=== PATIENT | female | born 1965 | race Caucasian/White ===

== ENCOUNTER → 2016-07-12 | Outpatient (CLI) | payer BC ==
--- NOTE | 2016-07-16 09:49 | MM ---
Reason for exam: screening (asymptomatic). Last mammogram was performed 3 years and 7 months ago. History: Patient is postmenopausal and has history of other cancer at age 43. Physical Findings: A clinical breast exam by your physician is recommended on an annual basis and results should be correlated with mammographic findings. MG Screening Mammo w CAD Bilateral CC and MLO view(s) were taken. Prior study comparison: December 10, 2012, bilateral screening mammogram free. November 26, 2011, bilateral screening mammogram free. November 13, 2010, CAD bilateral diagnostic mammogram. There are scattered fibroglandular densities. No significant changes when compared with prior studies. ASSESSMENT: Negative, BI-RAD 1 RECOMMENDATION: Routine screening mammogram of both breasts in 1 year.
== END | disposition home or self-care (01) ==
LOC: RADMAMWWP 16:36
PROVIDERS: ATTEND Family Medicine
DX: Z12.31 Encounter for screening mammogram for malignant neoplasm of breast (principal)

== ENCOUNTER → 2017-03-21 | Outpatient (CLI) | payer BC, OTHER ==
--- NOTE | 2017-03-21 15:04 | XR ---
EXAMINATION TYPE: XR wrist limited RT, XR hand complete RT DATE OF EXAM: 03/21/2017 CLINICAL HISTORY: pain TECHNIQUE: Frontal, lateral and oblique images of the right hand are obtained. 2 views of the right wrist are also submitted. COMPARISON: None. FINDINGS: There is no acute fracture/dislocation evident. The joint spaces appear mildly narrowed. T he overlying soft tissue appears unremarkable. IMPRESSION: There is no acute fracture or dislocation ICD 10 NO FRACTURE, INITIAL EVALUATION
== END | disposition home or self-care (01) ==
LOC: RADXRMAIN 13:37
PROVIDERS: ATTEND Internal Medicine Hematology & Oncology
DX: C49.9 Malignant neoplasm of connective and soft tissue, unspecified (principal); M15.9 Polyosteoarthritis, unspecified; Z71.3 Dietary counseling and surveillance

== ENCOUNTER → 2017-06-24 | Outpatient (CLI) | payer BC, OTHER ==
--- NOTE | 2017-06-24 18:13 | MR ---
EXAMINATION TYPE: MR shoulder RT wo con DATE OF EXAM: 06/24/2017 COMPARISON: Outside Right shoulder x-ray June 07, 2017 HISTORY: Rt shoulder pain x 6 mos, no trauma TECHNIQUE: Multiplanar, multisequence imaging of the right shoulder is performed without contrast. FINDINGS: Rotator Cuff: There is increased signal in the distal infraspinatus tendon seen best parasagittal chirag ge 22 . There is focal defect in the distal supraspinatus tendon at articular surface measured 7 mm A P diameter sagittal image 24 and 4 mm transversely paracoronal image 13. No full-thickness retracted tear is seen. Rotator cuff muscle bulk is preserved. Subscapularis tendon is intact. Acromioclavicular Joint: There is mild joint space loss and capsular hypertrophy. Distal acromion mor phology is unremarkable. Underlying fat plane is maintained. Glenohumeral Joint: There is small glenohumeral joint effusion. No significant spurring is seen. Labrum: The labrum appears grossly intact given limitation of non-arthrogram study. Biceps Tendon: The long head of biceps is in normal location within bicipital groove. Bone marrow signal: No focal abnormal marrow signal is appreciated. Other: Moderate subdeltoid/subacromial fluid collection is seen IMPRESSION: High-grade articular surface tear of distal supraspinatus tendon with adjacent fluid into the subdeltoid/subacromial bursa. Tendinosis distal infraspinatus tendon. No labral tear is seen.
== END | disposition home or self-care (01) ==
LOC: RADMRIMAIN 16:19
PROVIDERS: ATTEND Orthopaedic Surgery
DX: M75.101 Unspecified rotator cuff tear or rupture of right shoulder, not specified as traumatic (principal); M25.811 Other specified joint disorders, right shoulder

== ENCOUNTER → 2017-07-02 | Outpatient (CLI) | payer BC, OTHER ==
[2017-07-02 17:47] LABS: Basophils % (A) 0 %; Eosinophils # (A) 0.1 k/uL (0-0.7); Eosinophils % (A) 1 %; HCT 41.4 % (34.0-46.0); HGB 14.1 gm/dL (11.4-16.0); Lymphocytes # (A) 2.4 k/uL (1.0-4.8); Lymphocytes % (A) 25 %; MCH 28.8 pg (25.0-35.0); MCV 84.8 fL (80.0-100.0); Mean Platelet Volume 9.2; Monocytes # (A) 0.6 k/uL (0-1.0); Monocytes % (A) 6 %; Neutrophils # (A) 6.4 k/uL (1.3-7.7); Neutrophils % (A) 66 %; Platelet Count 189 k/uL (150-450); RBC 4.88 m/uL (3.80-5.40); RDW 13.1 % (11.5-15.5); WBC 9.6 k/uL (3.8-10.6)
[2017-07-02 18:09] LABS: Potassium 4.6 mmol/L (3.5-5.1)
== END | disposition home or self-care (01) ==
LOC: LABPAT 16:56
PROVIDERS: ATTEND Orthopaedic Surgery
DX: Z01.818 Encounter for other preprocedural examination (principal); Z01.812 Encounter for preprocedural laboratory examination; M75.41 Impingement syndrome of right shoulder
CPT/HCPCS: 36415; 80051; 85025; 93005

== ENCOUNTER 2017-07-17 07:35 | Day surgery (SDC) | payer BC, OTHER ==
[2017-07-11 17:57] VITALS: BMI 27.6
--- NOTE | 2017-07-16 14:09 | HP ---
HISTORY AND PHYSICAL DATE OF SERVICE: 07/17/2017 Mariana Wyatt is a 52-year-old patient seen with progressive right shoulder pain. We discussed treatment options. She elected to proceed with right shoulder arthroscopy. Consent was obtained regarding the procedure. PAST MEDICAL HISTORY: Tfp-krfvvam-chuxnnnog diabetes. PAST SURGICAL HISTORY: Hand surgery, hysterectomy. DAILY MEDICATIONS: Ibuprofen as needed. ALLERGIES: LEVAQUIN, MORPHINE, SULFATE and NARCOTICS. SOCIAL HISTORY: Patient denies tobacco use. PHYSICAL EVALUATION RIGHT SHOULDER: Flexion 40 degrees, abduction 30 degrees, external rotation is 30 degrees with some pain and weakness. There is tenderness along the anterolateral acromion and rotator cuff insertion site. Impingement sign positive at 50 degrees. Drop-arm sign positive. Distal neurovascular exam intact. RIGHT SHOULDER RADIOGRAPHS: Revealed a type 2 anterior acromion. An MRI of the right shoulder revealed a rotator cuff tendon tear. IMPRESSION: Right shoulder impingement with rotator cuff tear. PLAN: Right shoulder arthroscopy, subacromial decompression, probable arthroscopic rotator cuff repair and debridement. MMODL / IJN: [id number] /
[~2017-07-17 07:35] MED LIST: LACTATED RINGERS 1,000 ML IV SCH; LIDOCAINE 1% 20 ML VIAL (10MG/ML) FOR IV START INTRADERMA PRN; MIDAZOLAM 2 MG/2 ML VIAL IV PRN; ONDANSETRON 4 MG/2 ML VIAL IVP ONE; SCOPOLAMINE 1.5MG/72HR PATCH TRANSDERM ONE; ceFAZolin 1,000 MG in DEXTROSE/WATER 1 50ML.BAG IVPB ONE; fentaNYL (PF) 50 MCG/ML 2 ML AMP IV PRN; fentaNYL (PF) 50 MCG/ML 2 ML AMP IVP PRN
[2017-07-17 08:44] LABS: Glucose,Whole Blood 180 mg/dL (75-99)
[2017-07-17] MEDS ORDERED: ROPIVACAINE 5 MG/ML 30 ML VIAL ONE (10:10)
[2017-07-17] MEDS ORDERED: MIDAZOLAM 2 MG/2 ML VIAL ONE (10:10)
[2017-07-17] MEDS ORDERED: LIDOCAINE 2% INJ 20 MG/ML (20 ML MDV) ONE (10:10)
[2017-07-17] MEDS ORDERED: fentaNYL (PF) 50 MCG/ML 2 ML AMP ONE (10:10)
[2017-07-17] MEDS ORDERED: PROPOFOL 10 MG/ML 20 ML VIAL IV ONE (10:10)
[2017-07-17] MEDS ORDERED: LIDOCAINE 1% INJ 10MG/ML (20 ML MDV) ONE (10:10)
[2017-07-17] MEDS ORDERED: SUCCINYLCHOLINE CHLORIDE 100 MG/5 ML SYR IV ONE (10:10)
--- NOTE | 2017-07-17 11:05 | P.ONQ ---
Anesthesiology Proc Note - PNB - Peripheral Nerve Block Performed Right Interscalene Indication: Requested by physician (Dr Wang) Sedation Type: Sedate with meaningful contact maintained Preparation: Sterile Prep Position: Supine Catheter: None Needle Types: Other (see comment) (Nanda) Needle Size: 50mm (2") Needle Gauge: 21 (0.5% Ropivacaine 13cc, 2% Lidocaine with 1:100,000 epi 13cc) Blood Aspirated: No Pain Paresthesia on Injection Noted: No Resistance on Injection: Normal Events: Uneventful and Well Tolerated
[2017-07-17] MEDS ORDERED: LACTATED RINGERS 1,000 ML IV ONE (11:11)
--- NOTE | 2017-07-17 11:58 | P.OP ---
Date of Procedure: 07/17/17 Preoperative Diagnosis: Right shoulder impingement with rotator cuff tear Postoperative Diagnosis: 1. Right shoulder rotator cuff tear 2. Right shoulder impingement 3. Right shoulder acromioclavicular joint osteoarthritis 4. Right shoulder partial biceps tendon tear 5. Right shoulder anterior labral tear Procedure(s) Performed: 1. Right shoulder arthroscopic rotator cuff repair 2. Right shoulder arthroscopic subacromial decompression 3. Right shoulder arthroscopic Siria procedure 4. Right shoulder arthroscopic biceps tenotomy 5. Right shoulder arthroscopic debridement labral tear Implants: 4-4.75 Arthrex anchors Anesthesia: GETA, regional (Interscalene block) Surgeon: Sagar Wang Balance Staff Inspector #1: Buzz Fink Estimated Blood Loss (ml): 12 Pathology: none sent Condition: stable Disposition: PACU Indications for Procedure: 52-year-old patient seen with progressive right shoulder pain. After having treatment options discussed, she elected to proceed with arthroscopy. Operative Findings: see description of procedure Description of Procedure: Patient underwent a shoulder block by department of anesthesia. The patient was then taken to the operative suite. The patient underwent a general anesthetic by the department of anesthesia. The patient was placed into a lateral position and secured. There was appropriate padding of the bony prominence. Right shoulder was then prepped and draped in normal sterile orthopedic fashion. We placed the extremity in 10 pounds of longitudinal traction. A posterior incision was now made for a posterior working portal site. The trocar and cannula were inserted into the glenohumeral joint. Arthroscopy was initiated. Spinal needle was now inserted anteriorly, to ascertain the anterior working portal site. An incision was now made in that area, a trocar was inserted followed by a probe. There was superficial tearing of the anterior labrum. There was some partial tearing and hyperemia of the long head biceps tendon. It was an obvious rotator cuff tear visualized from glenohumeral side. There was a small central area of the glenoid with grade 1 chondromalacia but no osteochondral tears present. I performed an arthroscopic biceps tenotomy. I debrided that labral tear down to stable tissue. The residual labrum was stable. Instruments were now removed from the glenohumeral joint. Utilizing the posterior working portal site, the trocar and cannula were inserted into the subacromial space. Arthroscopy initiated. I made an incision 2 fingerbreadths lateral to the acromion. I introduced my trocar followed by my ArthroCare ablator. I now began ablating thick subacromial bursal tissue, which exposed the undersurface of the anterior acromion. This was diminished subacromial space. There was a very prominent anterior acromion. A motorized bur was introduced and a subacromial decompression was performed. I also excised some osteophytes off the inferior aspect of the distal clavicle. The AC joint was visualized and noted to be fairly arthritic. Our motorized bur was introduced in the anterior portal site and a Siria procedure was performed without difficulty, decompressing the AC joint nicely. I turned my attention to the rotator cuff. There was a 2 cm tear along the distal supraspinatus. I debrided the margins getting down to stable rotator cuff tendon tissue. I abraded the footprint with a motorized bur. I created an industrial paramedic he portal site off the lateral acromion. I introduced 2 medial row anchors with 2 sutures each. I now passed all 8 limbs of suture through good bites of rotator cuff tendon. I now crisscrossed the sutures and introduced 2 lateral anchors which compressed the tendon along the footprint very nicely. The suture limbs were clipped. The repair was probed and found to be stable. I injected 1 mL of Renue intra-articular. Instruments now removed from the portal sites. All portal sites were approximated with nylon suture. Sterile dressings were applied followed by a shoulder immobilizer. Benigno ZELAYA assisted with the procedure. The patient was awakened, transferred to a bed, and taken to recovery in stable condition.
[2017-07-17 12:03] VITALS: TEMP 97.2
[2017-07-17 13:06] VITALS: RESP 18
[2017-07-17 13:34] VITALS: BP 117/74; PULSE 73
== END 2017-07-17 14:01 | disposition home or self-care (01) ==
LOC: OR 07:35
PROVIDERS: ATTEND Orthopaedic Surgery
DX: M75.101 Unspecified rotator cuff tear or rupture of right shoulder, not specified as traumatic (principal); M25.811 Other specified joint disorders, right shoulder; M19.011 Primary osteoarthritis, right shoulder; S46.111A Strain of muscle, fascia and tendon of long head of biceps, right arm, initial encounter; S43.431A Superior glenoid labrum lesion of right shoulder, initial encounter; M25.711 Osteophyte, right shoulder; X58.XXXA Exposure to other specified factors, initial encounter; E11.9 Type 2 diabetes mellitus without complications; K21.9 Gastro-esophageal reflux disease without esophagitis; Z88.5 Allergy status to narcotic agent; Z88.2 Allergy status to sulfonamides; Z88.1 Allergy status to other antibiotic agents; Z88.8 Allergy status to other drugs, medicaments and biological substances
CPT/HCPCS: 64415; 29826; 29827; 29824; C1713; C1765; J2001 ×2; J2250; J2405; J3010; J0690; J2795; J0330; J2704

== ENCOUNTER → 2017-11-16 | Outpatient (CLI) | payer BC, OTHER ==
[2017-11-16 11:00] LABS: Albumin 4.1 g/dL (3.5-5.0); Glucose 182 mg/dL (74-99); Total Protein 6.9 g/dL (6.3-8.2); Triglycerides 211 mg/dL (<150)
[2017-11-16 11:01] LABS: ALT 32 U/L (9-52); AST 23 U/L (14-36); Alkaline Phosphatase 80 U/L (38-126); Anion Gap 9 mmol/L; Blood Urea Nitrogen 18 mg/dL (7-17); Calcium 9.3 mg/dL (8.4-10.2); Carbon Dioxide 24 mmol/L (22-30); Chloride 104 mmol/L (98-107); Cholesterol 266 mg/dL (<200); HDL Cholesterol 47 mg/dL (40-60); LDL Cholesterol,Calculated 177 mg/dL (0-99); Potassium 4.9 mmol/L (3.5-5.1); Sodium 137 mmol/L (137-145)
[2017-11-16 18:08] LABS: Hemoglobin A1C 8.1 % (4.0-6.0)
== END | disposition home or self-care (01) ==
LOC: LABWHC1 10:10
PROVIDERS: ATTEND Nurse Practitioner Family
DX: E11.9 Type 2 diabetes mellitus without complications (principal)
CPT/HCPCS: 36415; 80053; 80061; 83036

== ENCOUNTER 2018-01-13 07:39 | Day surgery (SDC) | payer BC, OTHER ==
[2018-01-08 16:34] VITALS: BMI 29.2
--- NOTE | 2018-01-12 17:08 | HP ---
HISTORY AND PHYSICAL SURGERY: 01/13/2018 Mariana Hughes is a 60-year-old patient seen with right shoulder adhesions/adhesive capsulitis after having previously undergone arthroscopy. We discussed treatment options. She elected to proceed with manipulation under anesthesia with steroid injection. Consent was obtained her. PAST MEDICAL HISTORY: Noncontributory. PAST SURGICAL HISTORY: Right shoulder arthroscopy, hysterectomy. DAILY MEDICATIONS: None. ALLERGIES: Levaquin, morphine. SOCIAL HISTORY: Patient denies tobacco use. PHYSICAL EXAMINATION: Evaluation of the right shoulder: Flexion is 130 degrees, abduction is 120 degrees, external rotation is 30 degrees with good strength. Previous arthroscopic portal sites are well healed. Distal neurovascular exam is intact. RADIOGRAPHS: Radiographs of the right shoulder demonstrated a flat anterior acromion. IMPRESSION: 1. Right shoulder adhesive capsulitis. 2. History of previous right shoulder arthroscopy. PLAN: Manipulation under anesthesia right shoulder with steroid injection. MMODL / IJN: [id number] /
[~2018-01-13 07:39] MED LIST changes: +DEXAMETHASONE SOD PHOSPHATE 10 MG/ML 1 ML VIAL IV ONE; -LIDOCAINE 1% 20 ML VIAL (10MG/ML) FOR IV START INTRADERMA PRN; -ceFAZolin 1,000 MG in DEXTROSE/WATER 1 50ML.BAG IVPB ONE; +ceFAZolin IN SWFI 2 GM/20 ML SYRINGE IVP ONE; -fentaNYL (PF) 50 MCG/ML 2 ML AMP IVP PRN
[2018-01-13] MEDS ORDERED: LIDOCAINE 1% 20 ML VIAL (10MG/ML) FOR IV START INTRADERMA ONE (08:16)
[2018-01-13 08:23] LABS: Glucose,Whole Blood 202 mg/dL (75-99)
[2018-01-13] MEDS ORDERED: PROPOFOL 10 MG/ML 20 ML VIAL IV ONE (09:27)
[2018-01-13] MEDS ORDERED: LIDOCAINE 1% INJ 10MG/ML (20 ML MDV) ONE (09:27)
[2018-01-13] MEDS ORDERED: KETOROLAC 30 MG/ML 1 ML VIAL IVP ONE (09:38)
[2018-01-13 09:45] VITALS: RESP 16
[2018-01-13] MEDS ORDERED: BUPIVACAINE (PF) 0.25% 30 ML VIAL MISCELLANE ONE (09:55)
[2018-01-13] MEDS ORDERED: methylPREDNISolone ACETATE 80 MG/ML 1 ML VIAL MISCELLANE ONE (09:56)
--- NOTE | 2018-01-13 10:02 | P.OP ---
Date of Procedure: 01/13/18 Preoperative Diagnosis: Right shoulder adhesive capsulitis Postoperative Diagnosis: Same Procedure(s) Performed: Manipulation under anesthesia right shoulder with steroid injection Anesthesia: MAC Surgeon: Sagar Wang Estimated Blood Loss (ml): 0 Pathology: none sent Condition: stable Disposition: PACU Indications for Procedure: 52-year-old patient seen with persistent right shoulder stiffness/adhesive capsulitis. I discussed manipulation under anesthesia with steroid injection, patient was agreeable and consent was obtained. Operative Findings: See description of procedure Description of Procedure: Patient underwent IV sedation by the department of anesthesia monitored area. Once sufficient anesthesia was noted I performed a manipulation of the right shoulder achieving 170 of flexion, 170 of abduction, 75 of external rotation and internal rotation to the iliac crest. There was some audible tearing of the adhesions. With good range of motion noted. The anterior aspect of the shoulder was now prepped and draped in the normal sterile fashion. I injected 1 mL Depo-Medrol and 2 mL quarter percent plain Marcaine intra-articular. A sterile Band-Aid was applied. Patient tolerated procedure well.
[2018-01-13 10:21] VITALS: TEMP 96.2
[2018-01-13 11:10] VITALS: BP 114/73; PULSE 78
== END 2018-01-13 11:31 | disposition home or self-care (01) ==
LOC: OR 07:39
PROVIDERS: ATTEND Orthopaedic Surgery
DX: M75.01 Adhesive capsulitis of right shoulder (principal); E11.9 Type 2 diabetes mellitus without complications; I10 Essential (primary) hypertension; E78.5 Hyperlipidemia, unspecified; Z88.5 Allergy status to narcotic agent; Z90.710 Acquired absence of both cervix and uterus; Z88.3 Allergy status to other anti-infective agents; Z79.84 Long term (current) use of oral hypoglycemic drugs
CPT/HCPCS: 23700; 20610; J1040; J2405; J2001; J1885; J2704

== ENCOUNTER → 2018-04-10 | Outpatient (CLI) | payer OTHER ==
--- NOTE | 2018-04-10 15:35 | XR ---
AP pelvis HISTORY: Trauma and pain Single frontal view of the pelvis Correlation to left hip same date Bone mineralization, joint spaces and alignment are maintained. Calcifications are indeterminate infe rior to the ischial tuberosity on the left. There may be calcific tendinitis. Probable vascular calci fications within the pelvis. IMPRESSION: No fracture or dislocation, follow-up as indicated.
--- NOTE | 2018-04-10 15:36 | XR ---
Left hip HISTORY: Trauma and pain 2 views of the left hip Calcification is present near the insertion of the gluteus tendon on the greater trochanter of the pr oximal left femur. Alignment, bone mineralization, joint spaces are maintained. Calcifications are ag ain noted as reported and pelvis x-ray same date. IMPRESSION: No acute fracture or dislocation. Possible calcific tendinitis.
--- NOTE | 2018-04-10 15:38 | XR ---
Left femur HISTORY: Trauma and pain 2 views of the left femur on 4 images Calcifications are again noted at the level of the fascial tuberosity and greater trochanter. Alignme nt, joint spaces are maintained. Surgical clips present in the soft tissues at the posterior aspect o f the distal left femur. There is a somewhat permeative pattern in the distal femur. Osteoarthritic c hange noted in the left knee. IMPRESSION: No fracture or dislocation. Permeative pattern within the distal femur is indeterminate, consider metastasis, multiple myeloma, correlate for patient's history of surgery.
== END | disposition home or self-care (01) ==
LOC: RADXRMAIN 14:43
PROVIDERS: ATTEND Emergency Medicine
DX: S70.02XA Contusion of left hip, initial encounter (principal)
CPT/HCPCS: 72170; 73502

== ENCOUNTER 2018-09-05 08:06 | Day surgery (SDC) | payer BC, OTHER ==
[2018-09-03 10:18] VITALS: BMI 29.1
[~2018-09-05 08:06] MED LIST changes: -DEXAMETHASONE SOD PHOSPHATE 10 MG/ML 1 ML VIAL IV ONE; -MIDAZOLAM 2 MG/2 ML VIAL IV PRN; -ONDANSETRON 4 MG/2 ML VIAL IVP ONE; -SCOPOLAMINE 1.5MG/72HR PATCH TRANSDERM ONE; -ceFAZolin IN SWFI 2 GM/20 ML SYRINGE IVP ONE; -fentaNYL (PF) 50 MCG/ML 2 ML AMP IV PRN
[2018-09-05 08:33] VITALS: RESP 16; TEMP 97.9
[2018-09-05 08:38] LABS: Glucose,Whole Blood 160 mg/dL (75-99)
[2018-09-05] MEDS ORDERED: PROPOFOL 10 MG/ML 20 ML VIAL IV ONE (09:17)
--- NOTE | 2018-09-05 09:22 | P.GSHP ---
History of Present Illness H&P Date: 09/05/18 Chief Complaint: GERD, Cook, screening Patient here today for upper and lower endoscopy. Patient with history of EGD 3 years ago. Had biopsy showing Cook's esophagus at that time. Her reflux has improved significantly. No trouble swallowing. No previous colonoscopy. No family history of colon cancer. No bowel complaints. 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, RT SHOULDER SX, Past Anesthesia/Blood Transfusion Reactions: Motion Sickness, Postoperative Nausea & Vomiting (PONV) Additional Past Anesthesia/Blood Transfusion Reaction / Comment(s): PONV with morphine Smoking Status: Never smoker - Past Family History Mother Family Medical History: Diabetes Mellitus, Hyperlipidemia Additional Family Medical History / Comment(s): osteoporosis in spine Father Family Medical History: Cancer Additional Family Medical History / Comment(s): 2009 cancer of esophagus, larynx & thyroid Medications and Allergies Home Medications Medication Instructions Recorded Confirmed Type Atorvastatin [Lipitor] 20 mg PO DAILY 09/03/18 09/05/18 History Dapagliflozin Propanediol [Farxiga] 5 mg PO DAILY 09/03/18 09/05/18 History Omeprazole 20 mg PO DAILY 09/03/18 09/05/18 History Allergies Allergy/AdvReac Type Severity Reaction Status Date / Time codeine Allergy Nausea & Verified 09/05/18 08:21 Vomiting levofloxacin [From Levaquin] Allergy Swelling Verified 09/05/18 08:21 hydromorphone HCl AdvReac Nausea Verified 09/05/18 08:21 [From Dilaudid] morphine AdvReac Nausea & Verified 09/05/18 08:21 Vomiting STEROIDS AdvReac VERY HIGH Uncoded 09/05/18 08:21 BLOOD SUGARS Surgical - Exam Vital Signs Temp Pulse Resp BP Pulse Ox 97.9 F 67 16 114/76 98 09/05/18 08:26 09/05/18 08:26 09/05/18 08:26 09/05/18 08:26 09/05/18 08:26 Physical exam: General: Well-developed, well-nourished HEENT: Normocephalic, sclerae nonicteric Abdomen: Nontender, nondistended Extremities: No edema Neuro: Alert and oriented Results - Labs Abnormal Lab Results - Last 24 Hours (Table) 09/05/18 Range/Units 08:31 POC Glucose (mg/dL) 160 H (75-99) mg/dL Assessment and Plan (1) Colon cancer screening Narrative/Plan: Will proceed with upper and lower endoscopy Current Visit: Yes Status: Acute Code(s): Z12.11 - ENCOUNTER FOR SCREENING FOR MALIGNANT NEOPLASM OF COLON SNOMED Code(s): 683574659
--- NOTE | 2018-09-05 09:41 | P.PCN ---
Date of Procedure: 09/05/18 Procedure(s) Performed: PREOPERATIVE DIAGNOSIS: GERD, history of Cook's esophagus, screening POSTOPERATIVE DIAGNOSIS: Minimal gastritis, small hiatal hernia PROCEDURE: 1. EGD with biopsy 2. Colonoscopy ANESTHESIA: MAC SURGEON: Yinka King M.D. SPECIMENS: Antrum ENDOSCOPIC PROCEDURE: The patient was on the endoscopy table in the left decubitus position. The Olympus gastroscope was inserted into the oropharynx and passed under direct visualization to the region of the third portion of the duodenum. From that point the scope was slowly withdrawn inspecting all surfaces carefully. There were no neoplastic inflammatory or polypoid lesions throughout the duodenum. The pylorus was widely patent. The stomach was carefully inspected. There was more gastritis present. A biopsy of the antrum took place to rule out H. pylori. Retroflexion revealed a small sliding hiatal hernia. The esophagus was then carefully examined. There was no evidence of Cook's esophagus at this time. The remainder the esophagus appear normal. The patient was kept on the endoscopy table in the left decubitus position. The Olympus colonoscope was inserted into the anus and passed under direct visualization to the base of the cecum. The appendiceal orifice was visualized. From that point the scope was slowly withdrawn inspecting all surfaces carefully. There were no neoplastic inflammatory or polypoid lesions throughout the cecum, ascending, transverse, descending, sigmoid and rectum. There was no visible diverticulosis noted. Digital rectal examination was normal. The patient was taken to the recovery room in stable condition per anesthesia guidelines. RECOMMENDATIONS: Await biopsy results. As needed antiacid therapy. No evidence of Cook's esophagus at this time. No routine follow-up EGD advised. Follow- up colonoscopy 10 years
[2018-09-05 10:17] VITALS: BP 103/69; PULSE 69
== END 2018-09-05 10:44 | disposition home or self-care (01) ==
LOC: ORWHC2ENDO 08:06
PROVIDERS: ATTEND Surgery
DX: Z12.11 Encounter for screening for malignant neoplasm of colon (principal); K29.50 Unspecified chronic gastritis without bleeding; K21.9 Gastro-esophageal reflux disease without esophagitis; E11.9 Type 2 diabetes mellitus without complications; E78.5 Hyperlipidemia, unspecified; K44.9 Diaphragmatic hernia without obstruction or gangrene; Z80.8 Family history of malignant neoplasm of other organs or systems; Z80.0 Family history of malignant neoplasm of digestive organs; Z85.831 Personal history of malignant neoplasm of soft tissue; Z88.1 Allergy status to other antibiotic agents; Z88.5 Allergy status to narcotic agent; Z88.8 Allergy status to other drugs, medicaments and biological substances; Z79.84 Long term (current) use of oral hypoglycemic drugs; Z79.899 Other long term (current) drug therapy
CPT/HCPCS: 88305; 43239; J2704; G0121

== ENCOUNTER → 2023-03-04 | Outpatient (CLI) | payer BC ==
[2023-03-04 16:56] LABS: Ionized Calcium 5.2 mg/dL (4.5-5.3)
[2023-03-05 02:33] LABS: ALT 28 U/L (8-44); AST 19 U/L (13-35); Albumin 4.3 g/dL (3.8-4.9); Albumin/Globulin Ratio 1.87 Ratio (1.60-3.17); Alkaline Phosphatase 92 U/L (41-126); Amylase 55 U/L (23-121); Blood Urea Nitrogen 11.9 mg/dL (9.0-27.0); Carbon Dioxide 25.2 mmol/L (21.6-31.8); Chloride 102 mmol/L (96-109); Globulin 2.3 g/dL (1.6-3.3); Glucose 158 mg/dL (70-110); Lipase 48 U/L (14-63); Potassium 3.9 mmol/L (3.5-5.5); Sodium 139 mmol/L (135-145); Total Bilirubin 0.4 mg/dL (0.3-1.2); Total Protein 6.6 g/dL (6.2-8.2)
[2023-03-05 02:50] LABS: Basophils # (A) 0.05 X 10*3/uL (0.00-0.10); Basophils % (A) 0.6 %; Eosinophils # (A) 0.15 X 10*3/uL (0.04-0.35); Eosinophils % (A) 1.8 %; HGB 13.7 g/dL (12.0-15.0); Lymphocytes # (A) 1.98 X 10*3/uL (0.90-5.00); Lymphocytes % (A) 24.3 %; MCH 28.8 pg (27.0-32.0); MCHC 33.4 g/dL (32.0-37.0); MCV 86.1 FL (80.0-97.0); Mean Platelet Volume 12.3 FL (9.5-12.2); Monocytes # (A) 0.63 X 10*3/uL (0.20-1.00); Monocytes % (A) 7.7 %; NRBC Per 100 WBC 0 X 10*3/uL (0.00-0.01); Neutrophils # (A) 5.33 X 10*3/uL (1.80-7.70); Neutrophils % (A) 65.4 %; Platelet Count 209 X 10*3/uL (140-440); RBC 4.76 X 10*6/uL (4.10-5.20); RDW 12.8 % (11.5-14.5); WBC 8.16 X 10*3/uL (4.50-10.00)
== END | disposition home or self-care (01) ==
LOC: LABWHC1 14:42
PROVIDERS: ATTEND Internal Medicine
DX: E11.9 Type 2 diabetes mellitus without complications (principal)
CPT/HCPCS: 36415; 80053; 82150; 82330; 83690; 85025

== ENCOUNTER → 2023-03-12 | Outpatient (CLI) | payer BC ==
[2023-03-12 16:02] LABS: African American GFR (CKD) >90 (>60 ml/min/1.73 sqM); Blood Urea Nitrogen 23 mg/dL (7-17); Non-African American GFR(CKD) >90 (>60 ml/min/1.73 sqM)
--- NOTE | 2023-03-12 17:54 | CT ---
EXAMINATION TYPE: CT abdomen pelvis w con DATE OF EXAM: 03/12/2023 COMPARISON: NONE HISTORY: 57-year-old female R10.812, LUQ abdominal pain x 1 month TECHNIQUE: Contiguous axial scanning of the abdomen and pelvis following administration of 100 ml Iso geneva 300 IV contrast. Delayed images through the kidneys and coronal/sagittal reconstructions perform ed. CT DLP: 460.5 mGycm Automated exposure control for dose reduction was used. FINDINGS: Heart normal size without pericardial effusion. Lung bases clear without pleural effusion. Small hiatal hernia. Liver borderline in size at 17.2 cm. Mildly diminished attenuation of the liver parenchyma may reflec t mild fatty infiltration. Slight prominence to the bile duct up to 6 mm, likely chronic postcholecys tectomy status. Small 1.4 cm diverticulum arising from the second portion of the duodenum projecting into the pancreatic head region. Additional small 2.3 cm diverticulum projecting superiorly from the third portion of the duodenum. Portal venous system is patent. Adrenal glands, kidneys, spleen with small hilar splenule, and pancreas within normal limits. No dilated small bowel, free fluid, or free air. A prominent 9 mm left mid abdominal mesenteric lymph node likely reactive. Coronal image 31. Otherwise, no mesenteric or retroperitoneal lymphadenopathy. Retroaortic left renal vein. Normal appendix. [id number]-[id number] stool burden. All cervical vertebral wall thickening at the junctio n of the descending and proximal sigmoid colon. This may relate to nondistention. No pericolonic infl ammatory change. Mild distal sigmoid diverticulosis. Bladder not distended. Pelvic phlebolith. Uterus surgically absent. Both ovaries are visualized. No a bnormal fluid collection in the pelvis or pelvic lymphadenopathy. [id number] degenerative disc disease L5-S1. Some facet arthropathy lower lumbar spine. Mild deg enerative change of both hips. IMPRESSION: 1. SHORT SEGMENT MILD CIRCUMFERENTIAL WALL THICKENING AT THE JUNCTION OF THE DESCENDING AND PROXIMAL SIGMOID COLON MAY RELATE TO NONDISTENTION OR NONSPECIFIC MILD COLITIS. CLINICALLY CORRELATE. 2. MILD DISTAL SIGMOID DIVERTICULOSIS WITHOUT ACUTE DIVERTICULITIS. 3. THERE MAY BE MILD HEPATIC STEATOSIS. 4. SMALL HIATAL HERNIA.
== END | disposition home or self-care (01) ==
LOC: RADCTMAIN 15:22
PROVIDERS: ATTEND Internal Medicine
DX: K57.30 Diverticulosis of large intestine without perforation or abscess without bleeding (principal); K44.9 Diaphragmatic hernia without obstruction or gangrene; R10.812 Left upper quadrant abdominal tenderness; K63.89 Other specified diseases of intestine
CPT/HCPCS: 82565; 84520; 74177; 36415; Q9967

== ENCOUNTER 2023-03-23 19:44 | Emergency (ER) | payer BC ==
[2023-03-23 19:54] VITALS: RESP 18; TEMP 97.9
[2023-03-23] MEDS ORDERED: SODIUM CHLORIDE 0.9% 1,000 ML IV STA (21:39)
[2023-03-23] MEDS ORDERED: KETOROLAC 15 MG/ML 1 ML VIAL IVP STA (21:39)
[2023-03-23 22:01] LABS: Basophils % (A) 1 %; Eosinophils # (A) 0.1 k/uL (0-0.7); Eosinophils % (A) 2 %; HCT 39.4 % (34.0-46.0); Lymphocytes # (A) 1.7 k/uL (1.0-4.8); Lymphocytes % (A) 23 %; MCH 30.5 pg (25.0-35.0); MCHC 35.5 g/dL (31.0-37.0); Mean Platelet Volume 9.3; Monocytes # (A) 0.5 k/uL (0-1.0); Monocytes % (A) 7 %; Neutrophils # (A) 5.2 k/uL (1.3-7.7); Neutrophils % (A) 67 %; Platelet Count 197 k/uL (150-450); RBC 4.58 m/uL (3.80-5.40); RDW 13.1 % (11.5-15.5); WBC 7.7 k/uL (3.8-10.6)
--- NOTE | 2023-03-23 22:07 | CT ---
EXAMINATION TYPE: CT abdomen pelvis w con DATE OF EXAM: 03/23/2023 COMPARISON: 03/12/2023 INDICATION: Hx of colitis. Left/mid abdominal pain for a couple of months but it's getting worse. DLP: 653.3 mGycm, Automated exposure control for dose reduction was used. CONTRAST: 100ml mL of Isovue 300. Study performed without Oral Contrast TECHNIQUE: Axial images were obtained from above the diaphragm to the pubic rami in the axial plane a t 5 mm thick sections. Reconstructed images are reviewed on the computer in the coronal plane. FINDINGS: Limited CT sections are obtained the lung bases. The lung bases are clear. CT ABDOMEN: Liver: Mild fatty infiltration of the liver is present. Spleen: Normal Pancreas: Normal Adrenal glands: The adrenal glands are normal. Gallbladder: Surgically absent Kidneys: No masses are evident. No hydronephrosis is present. No cysts are present. Delayed images were obtained through the kidneys, which remain unremarkable. Aorta: Vascular calcification is within the aorta. Inferior vena cava: Normal. CT PELVIS: Loops of bowel within the abdomen and pelvis are normal. This study is without oral contrast limi ting bowel evaluation. Appendix: Normal as visualized. Urinary bladder: Normal. Genitourinary structures: Uterus and ovaries are not identified. Osseous structures: No suspicious lytic or sclerotic lesions. IMPRESSION: 1. Mild fatty infiltration liver. 2. No suspicious acute changes.
[2023-03-23 22:09] LABS: ALT 72 U/L (4-34); AST 81 U/L (14-36); African American GFR (CKD) 77 (>60 ml/min/1.73 sqM); Albumin 4.1 g/dL (3.5-5.0); Alkaline Phosphatase 130 U/L (38-126); Amylase 67 U/L (30-110); Anion Gap 9 mmol/L; Blood Urea Nitrogen 23 mg/dL (7-17); Calcium 9.5 mg/dL (8.4-10.2); Carbon Dioxide 22 mmol/L (22-30); Chloride 105 mmol/L (98-107); Glucose 208 mg/dL (74-99); Lipase 225 U/L (23-300); Non-African American GFR(CKD) 67 (>60 ml/min/1.73 sqM); Potassium 4.2 mmol/L (3.5-5.1); Sodium 136 mmol/L (137-145); Total Bilirubin 0.4 mg/dL (0.2-1.3); Total Protein 6.8 g/dL (6.3-8.2)
--- NOTE | 2023-03-23 22:20 | ED ---
Abdominal Pain HPI - General Chief Complaint: Abdominal Pain Stated Complaint: aBD PAIN Time Seen by Provider: 03/23/23 21:01 Source: patient Mode of arrival: ambulatory Limitations: no limitations - History of Present Illness Initial Comments: 57-year-old female presenting to the ED with a chief complaint of abdominal pain. Patient notes she has been having abdominal pain for the past 2 weeks. Patient saw her doctor for this who obtained a CAT scan which was performed on 03/12/[address] at this time showed findings possibly concer katy for colitis. Patient notes that she had an outpatient colonoscopy scheduled for her after this CAT scan was performed. No antibiotics were given for treatment at this time. Patient reports overall improvement of symptoms since then however does note recurrence of pain with certain foods. Patient states today after having spinach dip and crackers started to experience pain similar to prior prompting presentation to the ED for further evaluation. No nausea or vomiting. No changes in bowel or bladder habits. No fever or chills. No other complaints. - Related Data Home Medications Medication Instructions Recorded Confirmed Atorvastatin [Lipitor] 20 mg PO DAILY 09/03/18 09/05/18 Dapagliflozin Propanediol [Farxiga] 5 mg PO DAILY 09/03/18 09/05/18 Omeprazole 20 mg PO DAILY 09/03/18 09/05/18 Previous Rx's Medication Instructions Recorded Cephalexin [Keflex] 500 mg PO Q6HR 7 Days #28 cap 03/23/23 Phenazopyridine [Pyridium] 200 mg PO TID PRN #6 tablet 03/23/23 Allergies Allergy/AdvReac Type Severity Reaction Status Date / Time codeine Allergy Nausea & Verified 03/23/23 19:49 Vomiting levofloxacin [From Levaquin] Allergy Swelling Verified 03/23/23 19:49 hydromorphone HCl AdvReac Nausea Verified 03/23/23 19:49 [From Dilaudid] morphine AdvReac Nausea & Verified 03/23/23 19:49 Vomiting STEROIDS AdvReac VERY HIGH Uncoded 03/23/23 19:49 BLOOD SUGARS Review of Systems ROS Statement: Those systems with pertinent positive or pertinent negative responses have been documented in the HPI. ROS Other: All systems not noted in ROS Statement are negative. 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, RT SHOULDER SX, Past Anesthesia/Blood Transfusion Reactions: Motion Sickness, Postoperative Nausea & Vomiting (PONV) Additional Past Anesthesia/Blood Transfusion Reaction / Comment(s): PONV with morphine Past Psychological History: No Psychological Hx Reported Past Alcohol Use History: None Reported Past Drug Use History: None Reported - Past Family History Mother Family Medical History: Diabetes Mellitus, Hyperlipidemia Additional Family Medical History / Comment(s): osteoporosis in spine Father Family Medical History: Cancer Additional Family Medical History / Comment(s): 2009 cancer of esophagus, larynx & thyroid General Exam Limitations: no limitations General appearance: alert, in no apparent distress Neck exam: Present: normal inspection Respiratory exam: Present: normal lung sounds bilaterally Cardiovascular Exam: Present: regular rate, normal rhythm GI/Abdominal exam: Present: soft (No significant tenderness to palpation. No rebound guarding or rigidity.), normal bowel sounds Neurological exam: Present: alert, oriented X3 Skin exam: Present: warm, dry Course Vital Signs 03/23/23 03/23/23 19:47 22:44 Temperature 97.9 F Pulse Rate 97 86 Respiratory 18 18 Rate Blood Pressure 126/84 118/72 O2 Sat by Pulse 98 97 Oximetry Medical Decision Making - Medical Decision Making Was pt. sent in by a medical professional or institution (, PA, VICE PRESIDENT OF MANUFACTURING, urgent c are, hospital, or [facility]...) When possible be specific @ -No Did you speak to anyone other than the patient for history (EMS, parent, family, police, friend...)? What history was obtained from this source @ -No Did you review nursing and triage notes (agree or disagree)? Why? @ -I reviewed and agree with nursing and triage notes Were old charts reviewed (outside hosp., previous admission, EMS record, old EKG, old radiological studies, urgent care reports/EKG's, [facility] records)? Report findings @ -Yes, prior CT scan on 03/12/2023 reviewed. For further details please see HPI. Differential Diagnosis (chest pain, altered mental status, abdominal pain women, abdominal pain men, vaginal bleeding, weakness, fever, dyspnea, syncope, headache, dizziness, GI bleed, back pain, seizure, CVA, palpatations, mental health, musculoskeletal)? @ -Differential Abdominal Pain Women: Appendicitis, Cholecystitis, diverticulosis, ischemic bowel, pancreatitis, hepatitis, UTI, gastroenteritis, AAA, incarcerated hernia, bowel obstruction, constipation, inflammatory bowel, hepatitis, peptic ulcer disease, splenic infarction, perforated viscus, vulvitis, ovarian torsion, PID, kidney stone, placenta abruption, this is not meant to be an all-inclusive list EKG interpreted by me (3pts min.). @ -As above X-rays interpreted by me (1pt min.). @ -None done CT interpreted by me (1pt min.). @ -CT abdomen pelvis with contrast interpreted by me showing no evidence of acute finding. U/S interpreted by me (1pt. min.). @ -None done What testing was considered but not performed or refused? (CT, X-rays, U/S, labs)? Why? @ -None What meds were considered but not given or refused? Why? @ -None Did you discuss the management of the patient with other professionals (professionals i.e. , PA, VICE PRESIDENT OF MANUFACTURING, lab, RT, psych nurse, social media strategist, home care administrator, teacher, administrative officer, telephonic nurse case manager)? Give summary @ -No Was smoking cessation discussed for >3mins.? @ -No Was critical care preformed (if so, how long)? @ -No Were there social determinants of health that impacted care today? How? (Homelessness, low income, unemployed, alcoholism, drug addiction, transportation, low edu. Level, literacy, decrease access to med. care, halfway, rehab)? @ -No Was there de-escalation of care discussed even if they declined (Discuss DNR or withdrawal of care, Hospice)? DNR status @ -No What co-morbidities impacted this encounter? (DM, HTN, Smoking, COPD, CAD, Cancer, CVA, ARF, Chemo, Hep., AIDS, mental health diagnosis, sleep apnea, morbid obesity)? @ -None Was patient admitted / discharged? Hospital course, mention meds given and route, prescriptions, significant lab abnormalities, going to OR and other pertinent info. @ -Discharge 57-year-old female presenting to the ED with a chief complaint of abdominal pain. Patient recently had CAT scan that showed colitis on 03/12/2023 which patient notes has been gradually resolving over time however does note some occurrences of pain with specific foods. Notes had spinach dip today and started to experience pain somewhat consistent with her history prompting presentation to the ED for further evaluation. Laboratory studies including CBC, CMP largely unremarkable. UA does show minimal evidence of infection with positive nitrites and leukocyte Estrace. No flank tenderness on percussion and no fever at this time. CT abdomen pelvis revealed no acute findings. Patient discharged home in stable condition with prescription for Keflex Phenazopyridine. Discussed return precautions with patient who verbalized agreement. Undiagnosed new problem with uncertain prognosis? @ -No Drug Therapy requiring intensive monitoring for toxicity (Heparin, Nitro, Insulin, Cardizem)? @ -No Were any procedures done? @ -No Diagnosis/symptom? @ -UTI Acute, or Chronic, or Acute on Chronic? @ -Acute Uncomplicated (without systemic symptoms) or Complicated (systemic symptoms)? @ -Uncomplicated Side effects of treatment? @ -No Exacerbation, Progression, or Severe Exacerbation? @ -No Poses a threat to life or bodily function? How? (Chest pain, [place], [place], pneumonia, PE, COPD, DKA, ARF, appy, cholecystitis, CVA, Diverticulitis, Homicidal, Suicidal, threat to staff... and all critical care pts) @ -No - Lab Data Result diagrams: 03/23/23 21:48 03/23/23 21:48 Lab Results 03/23/23 03/23/23 03/23/23 Range/Units 21:48 21:48 22:00 WBC 7.7 (3.8-10.6) k/uL RBC 4.58 (3.80-5.40) m/uL Hgb 14.0 (11.4-16.0) gm/dL Hct 39.4 (34.0-46.0) % MCV 86.0 (80.0-100.0) fL MCH 30.5 (25.0-35.0) pg MCHC 35.5 (31.0-37.0) g/dL RDW 13.1 (11.5-15.5) % Plt Count 197 (150-450) k/uL MPV 9.3 Neutrophils % 67 % Lymphocytes % 23 % Monocytes % 7 % Eosinophils % 2 % Basophils % 1 % Neutrophils # 5.2 (1.3-7.7) k/uL Lymphocytes # 1.7 (1.0-4.8) k/uL Monocytes # 0.5 (0-1.0) k/uL Eosinophils # 0.1 (0-0.7) k/uL Basophils # 0.0 (0-0.2) k/uL Sodium 136 L (137-145) mmol/L Potassium 4.2 (3.5-5.1) mmol/L Chloride 105 (98-107) mmol/L Carbon Dioxide 22 (22-30) mmol/L Anion Gap 9 mmol/L BUN 23 H (7-17) mg/dL Creatinine 0.96 (0.52-1.04) mg/dL Est GFR (CKD-EPI)AfAm 77 (>60 ml/min/1.73 sqM) Est GFR (CKD-EPI)NonAf 67 (>60 ml/min/1.73 sqM) Glucose 208 H (74-99) mg/dL Calcium 9.5 (8.4-10.2) mg/dL Total Bilirubin 0.4 (0.2-1.3) mg/dL AST 81 H (14-36) U/L ALT 72 H (4-34) U/L Alkaline Phosphatase 130 H (38-126) U/L Total Protein 6.8 (6.3-8.2) g/dL Albumin 4.1 (3.5-5.0) g/dL Amylase 67 (30-110) U/L Lipase 225 (23-300) U/L Urine Color Light Yellow Urine Appearance Clear (Clear) Urine pH 5.5 (5.0-8.0) Ur Specific [place] 1.045 H (1.001-1.035) Urine Protein Trace H (Negative) Urine Glucose (UA) 3+ H (Negative) Urine Ketones 1+ H (Negative) Urine Blood Negative (Negative) Urine Nitrite Positive H (Negative) Urine Bilirubin Negative (Negative) Urine Urobilinogen 2.0 (<2.0) mg/dL Ur Leukocyte Esterase Small H (Negative) Urine RBC 1 (0-5) /hpf Urine WBC 17 H (0-5) /hpf Ur Squamous Epith Cells 6 H (0-4) /hpf Urine Bacteria Many H (None) /hpf Hyaline Casts 4 H (0-2) /lpf Urine Mucus Rare H (None) /hpf Disposition Clinical Impression: UTI (urinary tract infection) Disposition: HOME SELF-CARE Condition: Good Instructions (If sedation given, give patient instructions): Phenazopyridine (By mouth), Urinary Tract Infection in Women (DC) Additional Instructions: Please return to the Emergency Department if symptoms worsen or any other concerns. Please follow-up with your primary care provider Prescriptions: Cephalexin [Keflex] 500 mg PO Q6HR 7 Days #28 cap Phenazopyridine [Pyridium] 200 mg PO TID PRN #6 tablet PRN Reason: pain Is patient prescribed a controlled substance at d/c from ED?: No Referrals: Jeffery Bird DO [Primary Care Provider] - 1-2 days
[2023-03-23 22:33] LABS: Appearance,Urine Clear (Clear); Bacteria,Urine Many /hpf; Bilirubin,Urine Negative (Negative); Blood,Urine Negative (Negative); Color,Urine Light Yellow; Glucose,Urine (UA) 3+ (Negative); Hyaline Casts,Urine 4 /lpf (0-2); Ketones,Urine 1+ (Negative); Leukocyte Esterase,Urine Small (Negative); Mucus,Urine Rare /hpf; Nitrite,Urine Positive (Negative); PH, Urine 5.5 (5.0-8.0); Protein,Urine Trace (Negative); RBC,Urine 1 /hpf (0-5); Specific Gravity,Urine 1.045 (1.001-1.035); Squamous Epithelial Cell,Urine 6 /hpf (0-4); WBC,Urine 17 /hpf (0-5)
[2023-03-23 22:51] VITALS: BP 118/72; PULSE 86
[2023-03-23] MEDS ORDERED: CEPHALEXIN 500MG STARTER PACK 4 CAP BTL PO STA ×2 (23:15→23:24)
== END 2023-03-23 23:43 | disposition home or self-care (01) ==
LOC: EC 19:44
DX: N39.0 Urinary tract infection, site not specified (principal); K76.0 Fatty (change of) liver, not elsewhere classified; E11.9 Type 2 diabetes mellitus without complications; K21.9 Gastro-esophageal reflux disease without esophagitis; E78.5 Hyperlipidemia, unspecified; Z79.899 Other long term (current) drug therapy; Z88.5 Allergy status to narcotic agent; Z88.6 Allergy status to analgesic agent; Z88.8 Allergy status to other drugs, medicaments and biological substances; Z79.84 Long term (current) use of oral hypoglycemic drugs; Z88.1 Allergy status to other antibiotic agents
CPT/HCPCS: 36415; 80053; 82150; 83690; 85025; 81001; 74177; 99284; 96374; 96361 ×2; J1885; Q9967

== ENCOUNTER 2023-04-04 06:34 | Day surgery (SDC) | payer BC ==
[2023-04-03 08:39] VITALS: BMI 27.2
[2023-04-04] MEDS ORDERED: LIDOCAINE 1% (10MG/ML) FOR IV START INTRADERMA PRN (06:41)
[2023-04-04] MEDS ORDERED: LACTATED RINGERS 1,000 ML IV SCH (06:41)
[2023-04-04 07:16] LABS: Glucose,Whole Blood 128 mg/dL (70-110)
[2023-04-04] MEDS: LACTATED RINGERS 1,000 ML IV ONE (07:17)
[2023-04-04 07:18] VITALS: TEMP 97.9
[2023-04-04] MEDS ORDERED: PROPOFOL 10 MG/ML 20 ML VIAL IV ONE (07:31)
--- NOTE | 2023-04-04 07:39 | P.GSHP ---
History of Present Illness H&P Date: 04/04/23 Chief Complaint: Abdominal pain, gastroenteritis, gerd This is a 57-year-old female who has had complaints of epigastric right upper quadrant abdominal pain. Patient has a previous history of cholecystitis. Patient presents today for EGD and colonoscopy. 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, RT SHOULDER SX, COLONOSCOPY Past Anesthesia/Blood Transfusion Reactions: Motion Sickness, Postoperative Nausea & Vomiting (PONV) Additional Past Anesthesia/Blood Transfusion Reaction / Comment(s): PONV with morphine Smoking Status: Never smoker - Past Family History Mother Family Medical History: Diabetes Mellitus, Hyperlipidemia Additional Family Medical History / Comment(s): osteoporosis in spine Father Family Medical History: Cancer Additional Family Medical History / Comment(s): 2009 cancer of esophagus, larynx & thyroid Medications and Allergies Home Medications Medication Instructions Recorded Confirmed Type Omeprazole 20 mg PO DAILY 09/03/18 04/03/23 History Loratadine [Claritin] 10 mg PO DAILY 04/03/23 04/03/23 History glipiZIDE [Glucotrol] 10 mg PO AC-[id number] 04/03/23 04/03/23 History Allergies Allergy/AdvReac Type Severity Reaction Status Date / Time codeine Allergy Nausea & Verified 04/03/23 08:07 Vomiting levofloxacin [From Levaquin] Allergy Swelling Verified 04/03/23 08:07 hydromorphone HCl AdvReac Nausea Verified 04/03/23 08:07 [From Dilaudid] morphine AdvReac Nausea & Verified 04/03/23 08:07 Vomiting STEROIDS AdvReac VERY HIGH Uncoded 04/03/23 08:07 BLOOD SUGARS Surgical - Exam Vital Signs Temp Pulse Resp BP Pulse Ox 97.9 F 79 18 125/77 98 04/04/23 07:09 04/04/23 07:09 04/04/23 07:09 04/04/23 07:09 04/04/23 07:09 - General well developed, well nourished, no distress - Eyes PERRL - ENT normal pinna - Neck no masses - Respiratory normal expansion - Cardiovascular Rhythm: regular - Abdomen Right upper quadrant tenderness Abdomen: soft Results - Labs Abnormal Lab Results - Last 24 Hours (Table) 04/04/23 Range/Units 07:15 POC Glucose (mg/dL) 128 H (70-110) mg/dL Assessment and Plan Assessment: History of abdominal pain, gerd. With patient undergo EGD and colonoscopy.
--- NOTE | 2023-04-04 07:58 | P.OP ---
Date of Procedure: 04/04/23 Preoperative Diagnosis: Gerd Abdominal pain Gastroenteritis Postoperative Diagnosis: Antral gastritis Hiatal hernia Esophagitis Diverticulosis Internal/external hemorrhoids Procedure(s) Performed: EGD Colonoscopy Anesthesia: MAC Surgeon: Arie Sal Pathology: other (Antrum, esophagus) Condition: stable Disposition: PACU Description of Procedure: The patient is placed on the endoscopy table in the lateral position. She received IV sedation. The gas was placed oropharynx passed in the esophagus into the stomach. The scope was then placed through the pylorus. The first and second portion of the duodenum appeared normal. Scope was then brought back to the antrum this was mild inflamed. A biopsy was performed. The scope was then retroflexed in the remainder of the stomach appeared normal. There was a moderate size hiatal hernia. The GE junction was at 38 cm. The distal esophag us appeared mildly Flaim. A biopsy was performed. The proximal esophagus appeared normal. Scope withdrawn patient. Next digital rectal exam was performed. This revealed internal/external hemorrhoids. Flexible colonoscope was then placed patient anus and passed throughout the entire colon. The ileocecal valve was visualized. The cecum, ascending and transverse colon appeared normal. The descending and sigmoid colon had mild diverticular changes. The scope was then brought back to the rectum and this appeared normal. Scope withdrawn for the patient.
[2023-04-04 08:11] LABS: Glucose,Whole Blood 157 mg/dL (70-110)
[2023-04-04 08:21] VITALS: BP 105/74; PULSE 67; RESP 16
== END 2023-04-04 08:49 | disposition home or self-care (01) ==
LOC: ORWHC2ENDO 06:34
PROVIDERS: ATTEND Surgery
DX: K29.50 Unspecified chronic gastritis without bleeding (principal); K21.00 Gastro-esophageal reflux disease with esophagitis, without bleeding; E11.9 Type 2 diabetes mellitus without complications; K44.9 Diaphragmatic hernia without obstruction or gangrene; K64.4 Residual hemorrhoidal skin tags; K64.8 Other hemorrhoids; Z88.1 Allergy status to other antibiotic agents; Z88.5 Allergy status to narcotic agent; Z90.49 Acquired absence of other specified parts of digestive tract; Z79.899 Other long term (current) drug therapy; Z79.84 Long term (current) use of oral hypoglycemic drugs; Z88.8 Allergy status to other drugs, medicaments and biological substances; Z85.89 Personal history of malignant neoplasm of other organs and systems
CPT/HCPCS: 88305; 45378; 43239; J2704

== ENCOUNTER → 2023-04-22 | Outpatient (CLI) | payer BC ==
[2023-04-22 16:03] LABS: Basophils # (A) 0.05 X 10*3/uL (0.00-0.10); Basophils % (A) 0.8 %; Eosinophils # (A) 0.11 X 10*3/uL (0.04-0.35); Eosinophils % (A) 1.8 %; HCT 42.3 % (37.2-46.3); HGB 14.1 g/dL (12.0-15.0); Lymphocytes # (A) 1.65 X 10*3/uL (0.90-5.00); Lymphocytes % (A) 27.5 %; MCH 28.9 pg (27.0-32.0); MCHC 33.3 g/dL (32.0-37.0); MCV 86.7 FL (80.0-97.0); Mean Platelet Volume 12.1 FL (9.5-12.2); Monocytes # (A) 0.48 X 10*3/uL (0.20-1.00); NRBC Per 100 WBC 0 X 10*3/uL (0.00-0.01); Neutrophils # (A) 3.71 X 10*3/uL (1.80-7.70); Neutrophils % (A) 61.7 %; Platelet Count 219 X 10*3/uL (140-440); RBC 4.88 X 10*6/uL (4.10-5.20); RDW 12.9 % (11.5-14.5); WBC 6.01 X 10*3/uL (4.50-10.00)
== END | disposition home or self-care (01) ==
LOC: LABPAT 09:23
PROVIDERS: ATTEND Surgery
DX: Z01.818 Encounter for other preprocedural examination (principal)
CPT/HCPCS: 36415; 85025; 93005

== ENCOUNTER 2023-05-03 07:00 | Inpatient (IN) | payer BC ==
[~2023-05-03 07:00] MED LIST changes: -LACTATED RINGERS 1,000 ML IV SCH; +LIDOCAINE 1% (10MG/ML) FOR IV START INTRADERMA PRN
[2023-05-03] MEDS: ACETAMINOPHEN TAB 500 MG TAB PO PRN (08:30)
[2023-05-03] MEDS: SCOPOLAMINE 1 MG/72 HR PATCH TRANSDERM ONE ×2 (08:30→09:00)
[2023-05-03] MEDS: HEPARIN SODIUM,PORCINE 5,000 UNIT/ML 1 ML VIAL SQ PRN (08:40)
[2023-05-03] MEDS: ONDANSETRON 4 MG/2 ML VIAL IVP ONE (08:40)
[2023-05-03] MEDS: LACTATED RINGERS 1,000 ML IV SCH ×2 (09:04→20:20)
[2023-05-03 09:23] LABS: Glucose,Whole Blood 162 mg/dL (70-110)
[2023-05-03] MEDS ORDERED: SUCCINYLCHOLINE CHLORIDE 200 MG/10 ML VIAL IV ONE (10:12)
[2023-05-03] MEDS ORDERED: KETOROLAC 15 MG/ML 1 ML VIAL ONE (10:12)
[2023-05-03] MEDS ORDERED: ROCURONIUM 10 MG/ML (5 ML VIAL) IV ONE (10:12)
[2023-05-03] MEDS ORDERED: NEOSTIGMINE 1 MG/ML 10 ML VIAL ONE (10:12)
[2023-05-03] MEDS ORDERED: PROPOFOL 10 MG/ML 20 ML VIAL IV ONE (10:12)
[2023-05-03] MEDS ORDERED: KETAMINE HCL IN 0.9 % NACL 50 MG/5 ML SYRINGE ONE (10:12)
[2023-05-03] MEDS ORDERED: PHENYLEPHRINE 10 MG/ML VIAL ONE (10:12)
[2023-05-03] MEDS ORDERED: LIDOCAINE 1% INJ 10MG/ML (20 ML MDV) ONE (10:12)
[2023-05-03] MEDS ORDERED: MIDAZOLAM 2 MG/2 ML VIAL ONE (10:12)
[2023-05-03] MEDS ORDERED: GLYCOPYRROLATE 0.2 MG/ML 2 ML VIAL ONE (10:12)
[2023-05-03] MEDS: BUPIVACAINE (PF) 0.25% 30 ML VIAL SQ ONE (10:41)
[2023-05-03] MEDS: LACTATED RINGERS 1,000 ML IV ONE (11:12)
[2023-05-03] MEDS ORDERED: HYDROmorphone 1 MG/ML 1 ML SYRINGE IVP PRN (11:28)
[2023-05-03] MEDS ORDERED: ONDANSETRON 4 MG/2 ML VIAL IVP PRN (11:28)
--- NOTE | 2023-05-03 11:28 | P.OP ---
Date of Procedure: 05/03/23 Preoperative Diagnosis: GERD Postoperative Diagnosis: GERD Hiatal hernia Procedure(s) Performed: Laparoscopic Khris fundal plication Anesthesia: KEITH Surgeon: Arie Sla Estimated Blood Loss (ml): 5 Pathology: none sent Condition: stable Disposition: PACU Description of Procedure: HThe patient was placed on the operating table in the supine position. The patient received general anesthesia. And was placed in dorsal lithotomy position. The patient was prepped and draped in the usual sterile fashion. The skin incision sites were anesthetized with 1% local Xylocaine. The skin was incised in the left periumbilical area and then using a blade less 5 mm trocar under direct visualization panel cavity was entered. After adequate insufflation the laparoscope was then placed into the peritoneal cavity. Next a 5 mm trochars placed in the right epigastric position. Another 5 millimeter trocar the right lateral position. Another 5 millimeter trocar in the left lateral position a 5 mm trocar is placed in the left epigastric position. And then the initial 5 mm trocar was exchanged for a 10 mm trocar. The left lateral lobe liver was retracted. The hernia was seen. The crural defect was then dissected using the Harmonic scissors device. A 360 crural dissection was performed the esophagus stomach was reduced back into the peritoneal Cavity. The crural defect was then closed using 2-0 Ethibond suture. Next the fundus of the stomach was mobilized using the [place] scissors device. and then a 58- Kinyarwanda bougie dilator was placed oropharynx passed into the esophagus and stomach the fundal plication wrap was then performed by grasping the fundus posteriorly and bringing it around the esophagus and stomach fundoplication was then performed using 2-0 Ethibond suture. Care was taken that the fundal location rested over top of the intra-abdominal esophagus. There was no injury seen to the stomach or esophagus. The dilator was then withdrawn. The abdomen was irrigated there is no bleeding seen. The trochars were then withdrawn and then skin incision sites were closed using 3-0 Monocryl suture Steri-Strips are applied. Patient thought procedure well and sent to recovery room in stable condition.
[2023-05-03 11:53] LABS: Glucose,Whole Blood 169 mg/dL (70-110)
[2023-05-03] MEDS: droPERidol 5 MG/2 ML VIAL IVP ONE (11:57)
[2023-05-03] MEDS: HYDROmorphone 0.5 MG/0.5 ML SYRINGE IVP PRN (12:10)
[2023-05-03] MEDS: ALBUMIN HUMAN 5% (12.5gm) 250 ML BOTTLE IVPB ONE (13:37)
[2023-05-03 14:51] LABS: Glucose,Whole Blood 229 mg/dL (70-110)
[2023-05-03 17:18] LABS: HCT 23.5 % (34.0-46.0); MCH 30.2 pg (25.0-35.0); MCHC 33.9 g/dL (31.0-37.0); MCV 89.1 fL (80.0-100.0); Mean Platelet Volume 10.4; Platelet Count 164 k/uL (150-450); RBC 2.64 m/uL (3.80-5.40); WBC 14.7 k/uL (3.8-10.6)
[2023-05-03] MEDS ORDERED: DEXTROSE 50% SYRINGE 50 ML IVP PRN ×2 (17:48)
[2023-05-03 18:04] LABS: Glucose,Whole Blood 283 mg/dL (70-110)
[2023-05-03] MEDS: INSULIN ASPART (NovoLOG) 100 UNIT/ML VIAL SQ ONE (18:26)
[2023-05-03] MEDS: D5-0.45% NACL WITH KCL 20MEQ/L 1,000 ML IV SCH (18:28)
--- NOTE | 2023-05-03 18:29 | P.CONS ---
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 She is currently admitted under the general surgery team status post elective laparoscopic Khris fundoplication. Surgical procedure completed by Dr. Sal. We were consulted for medical management throughout patient's hospitalization. Patient seen and fully evaluated at the bedside shortly after arrival to room 357. Blood glucose at this time 283. Patient currently reports controlled postoperative pain reports feeling only mild gas pains. Patient does report she is passing flatus. She is tolerating clear liquid diet and denies having any postoperative nausea or vomiting. Patient denies any other complaints including headache, lightheadedness, dizziness, chest pain, palpitations, shortness of breath, or experiencing any numbness/tingling/weakness in her extremities. Review of systems: Pertinent positives and negatives as discussed in HPI, a complete review of systems was performed and all other systems are negative. Physical exam: Vital signs reviewed and stable. General: Nontoxic, no distress and appears stated age. Derm: Skin warm and dry, normal coloration for ethnicity. Head: Atraumatic, normocephalic and symmetric. Eyes: EOMs intact, no lid lag, and anicteric sclera Mouth: no lip lesions, mucus membranes moist Cardiovascular: regular rate and rhythm with normal S1S2, no murmur, positive posterior tibial pulses bilaterally, and cap refill < 2 seconds. Lungs: Respirations even, regular, and unlabored on room air. Lungs CTA bilaterally, no rhonchi, no rales, no wheezing, and no accessory muscle usage. Abdominal: soft, nontender to palpation, no guarding, no appreciable organomegaly Ext: ROM intact. No gross muscle atrophy, no edema, no contractures Neuro: Speech clear, face symmetrical and CN II-XII grossly intact with no noted focal neuro deficits Psych: Alert and oriented to person, place, time, and situation. Appropriate and pleasant affect. Assessment and Plan of Care: Status post laparoscopic Khris fundoplication secondary to Hiatal hernia -Management per primary general surgery team including DVT prophylaxis, pain management, wound/dressing management, and advancement of diet. -Patient currently on DVT prophylaxis with Lovenox 40 mg daily. Type II vkr-gvuxmvs-kaczfbvlu diabetes mellitus with hyperglycemia -Blood glucose 283 -Order placed for glycemic protocol with NovoLog sliding scale. -Patient may resume glipizide 10 mg daily and Actos 30 mg daily upon discharge. GERD -GI prophylaxis with Protonix 40 mg IVP daily. Data reviewed: Blood pressure 102/54, heart rate 75, respiratory rate 18, temp 97.8 F, and SpO2 of 97% on room air. Blood glucose 283. Thank you for allowing us to participate in the care of this pleasant patient. Do not hesitate to contact us with questions. Someone can be reached from the [facility] hospitalist group all hours of the day at [phone] or via [employer]. Patient was seen independently by Nurse Practitioner. This document was prepared using [employer] dictation software. Please allow for errors in programming manager while rare they do occur. Salas Shannon NP rendered care for this patient independently, reviewed the findings and plan as documented in the note above. I did not physically speak with or examine the patient on this date. 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, RT SHOULDER SX, COLONOSCOPY Past Anesthesia/Blood Transfusion Reactions: Motion Sickness, Postoperative Nausea & Vomiting (PONV) Additional Past Anesthesia/Blood Transfusion Reaction / Comm: PONV with morphine Smoking Status: Never smoker - Past Family History Mother Family Medical History: Diabetes Mellitus, Hyperlipidemia Additional Family Medical History / Comment(s): osteoporosis in spine Father Family Medical History: Cancer Additional Family Medical History / Comment(s): 2010 cancer of esophagus, larynx & thyroid Medications and Allergies Home Medications Medication Instructions Recorded Confirmed Type Omeprazole 20 mg PO DAILY 09/03/18 05/03/23 History Loratadine [Claritin] 10 mg PO DAILY 04/03/23 05/03/23 History glipiZIDE [Glucotrol] 10 mg PO AC-BRKFST 04/03/23 05/03/23 History Pioglitazone [Actos] 30 mg PO DAILY 05/02/23 05/03/23 History Acetaminophen Tab [Tylenol] 650 mg PO Q6H #30 tab 05/03/23 Rx Docusate [Colace] 100 mg PO BID #20 capsule 05/03/23 Rx Ibuprofen [Motrin] 600 mg PO Q6HR PRN #40 tab 05/03/23 Rx oxyCODONE HCL [OxyIR] 5 mg PO Q6H PRN 3 Days #10 tab 05/03/23 Rx Allergies Allergy/AdvReac Type Severity Reaction Status Date / Time codeine Allergy Nausea & Verified 05/03/23 09:02 Vomiting levofloxacin [From Levaquin] Allergy Swelling Verified 05/03/23 09:02 hydromorphone HCl AdvReac Nausea Verified 05/03/23 09:02 [From Dilaudid] morphine AdvReac Nausea & Verified 05/03/23 09:02 Vomiting STEROIDS AdvReac VERY HIGH Uncoded 05/03/23 09:02 BLOOD SUGARS Physical Exam Osteopathic Statement: *. No significant issues noted on an osteopathic structural exam other than those noted in the History and Physical/Consult. Vitals: Vital Signs Temp Pulse Pulse Pulse Resp BP BP 05/03/23 17:17 105/65 05/03/23 16:30 72 16 88/60 05/03/23 16:15 78/47 05/03/23 16:00 70 16 87/62 05/03/23 15:30 67 16 83/53 05/03/23 15:15 66 16 89/57 05/03/23 15:00 70 16 91/57 05/03/23 14:45 80 16 74/42 05/03/23 14:15 66 16 91/52 05/03/23 14:00 75 16 84/42 05/03/23 13:45 62 16 90/53 05/03/23 13:30 58 L 16 66/50 05/03/23 13:15 58 L 14 86/55 05/03/23 13:00 59 L 14 80/51 05/03/23 12:45 55 L 16 62/41 05/03/23 12:12 55 L 16 78/50 05/03/23 11:57 59 L 16 98/55 05/03/23 11:43 59 L 16 120/78 05/03/23 11:27 97.4 F L 67 18 114/73 05/03/23 09:05 97.5 F L 71 16 102/70 Pulse Ox 05/03/23 17:17 05/03/23 16:30 97 05/03/23 16:15 05/03/23 16:00 96 05/03/23 15:30 97 05/03/23 15:15 96 05/03/23 15:00 97 05/03/23 14:45 96 05/03/23 14:15 100 05/03/23 14:00 99 05/03/23 13:45 100 05/03/23 13:30 99 05/03/23 13:15 98 05/03/23 13:00 96 05/03/23 12:45 95 05/03/23 12:12 95 05/03/23 11:57 97 05/03/23 11:43 99 05/03/23 11:27 96 05/03/23 09:05 99 Intake and Output 05/03/23 05/03/23 05/03/23 06:59 14:59 22:59 Intake Total 3050 850 Output Total 20 Balance 3030 850 Intake: IV 3050 850 Output: Estimated Blood Loss 20 Other: Weight 66 kg Results CBC & Chem 7: 05/03/23 18:15 05/03/23 18:15 Labs: Abnormal Lab Results - Last 24 Hours (Table) 05/03/23 05/03/23 05/03/23 Range/Units 09:14 11:52 14:49 WBC (3.8-10.6) k/uL RBC (3.80-5.40) m/uL Hgb (11.4-16.0) gm/dL Hct (34.0-46.0) % POC Glucose (mg/dL) 162 H 169 H 229 H (70-110) mg/dL 05/03/23 Range/Units 17:00 WBC 14.7 H (3.8-10.6) k/uL RBC 2.64 L (3.80-5.40) m/uL Hgb 8.0 L D (11.4-16.0) gm/dL Hct 23.5 L (34.0-46.0) % POC Glucose (mg/dL) (70-110) mg/dL
[2023-05-03 18:36] LABS: Basophils % (A) 0 %; Eosinophils % (A) 0 %; HCT 23.8 % (34.0-46.0); Lymphocytes # (A) 1.1 k/uL (1.0-4.8); Lymphocytes % (A) 8 %; MCH 30.6 pg (25.0-35.0); MCHC 33.6 g/dL (31.0-37.0); MCV 90.9 fL (80.0-100.0); Monocytes # (A) 0.5 k/uL (0-1.0); Monocytes % (A) 3 %; Neutrophils # (A) 12.3 k/uL (1.3-7.7); Neutrophils % (A) 88 %; Platelet Count 169 k/uL (150-450); RBC 2.62 m/uL (3.80-5.40); RDW 13.1 % (11.5-15.5)
[2023-05-03 18:44] LABS: African American GFR (CKD) >90 (>60 ml/min/1.73 sqM); Albumin 3.1 g/dL (3.5-5.0); Anion Gap 9 mmol/L; Blood Urea Nitrogen 19 mg/dL (7-17); Calcium 8.1 mg/dL (8.4-10.2); Carbon Dioxide 20 mmol/L (22-30); Chloride 104 mmol/L (98-107); Glucose 253 mg/dL (74-99); Non-African American GFR(CKD) >90 (>60 ml/min/1.73 sqM); Potassium 4.4 mmol/L (3.5-5.1); Sodium 133 mmol/L (137-145); Total Protein 4.9 g/dL (6.3-8.2)
[2023-05-03 18:45] LABS: ALT 27 U/L (4-34); AST 33 U/L (14-36); Alkaline Phosphatase 60 U/L (38-126); Total Bilirubin 0.4 mg/dL (0.2-1.3)
[2023-05-03 20:02] LABS: Glucose,Whole Blood 255 mg/dL (70-110)
[2023-05-03] MEDS: INSULIN ASPART (NovoLOG) 100 UNIT/ML VIAL SQ SCH (20:19)
[2023-05-03] MEDS: ACETAMINOPHEN TAB 325 MG TAB PO PRN (21:51)
[2023-05-04 01:31] LABS: HCT 21.1 % (34.0-46.0); HGB 7.2 gm/dL (11.4-16.0); MCH 30.3 pg (25.0-35.0); MCHC 34.1 g/dL (31.0-37.0); MCV 88.8 fL (80.0-100.0); Mean Platelet Volume 10.3; Platelet Count 152 k/uL (150-450); RBC 2.38 m/uL (3.80-5.40); RDW 13.3 % (11.5-15.5); WBC 11.3 k/uL (3.8-10.6)
[2023-05-04 05:11] LABS: Glucose,Whole Blood 181 mg/dL (70-110)
[2023-05-04] MEDS: ENOXAPARIN 40 MG/0.4 ML SYRINGE SQ SCH (08:03)
[2023-05-04] MEDS: PANTOPRAZOLE 40 MG/10 ML VIAL IVP SCH (08:04)
[2023-05-04 08:40] LABS: HCT 20.5 % (34.0-46.0); MCH 29.8 pg (25.0-35.0); MCHC 34.1 g/dL (31.0-37.0); MCV 87.4 fL (80.0-100.0); Mean Platelet Volume 9.4; Platelet Count 163 k/uL (150-450); RBC 2.34 m/uL (3.80-5.40); RDW 13.2 % (11.5-15.5); WBC 11.3 k/uL (3.8-10.6)
[2023-05-04 08:54] LABS: ALT 25 U/L (4-34); AST 28 U/L (14-36); African American GFR (CKD) >90 (>60 ml/min/1.73 sqM); Albumin 3.2 g/dL (3.5-5.0); Alkaline Phosphatase 58 U/L (38-126); Anion Gap 7 mmol/L; Blood Urea Nitrogen 20 mg/dL (7-17); Calcium 8.6 mg/dL (8.4-10.2); Carbon Dioxide 24 mmol/L (22-30); Chloride 103 mmol/L (98-107); Glucose 160 mg/dL (74-99); Non-African American GFR(CKD) >90 (>60 ml/min/1.73 sqM); Potassium 4.2 mmol/L (3.5-5.1); Sodium 134 mmol/L (137-145); Total Bilirubin 0.6 mg/dL (0.2-1.3); Total Protein 5.1 g/dL (6.3-8.2)
[2023-05-04] MEDS: MAGNESIUM SULFATE-D5W PMX 1 GM in DEXTROSE/WATER 1 100ML.BAG IVPB ONE (10:01)
--- NOTE | 2023-05-04 10:49 | P.PN ---
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 She is currently admitted under the general surgery team status post elective laparoscopic Khris fundoplication. Surgical procedure completed by Dr. Sal. We were consulted for medical management throughout patient's hospitalization. Physical exam: Patient seen and fully evaluated at the bedside this morning. Her blood pressures have been running low and she has been mildly tachycardic. She reports significant dizziness upon standing and ambulating to restroom throughout the night. Patient's hemoglobin continued to decrease and is curr ently 7.0 with her preoperative hemoglobin of 14.1. Patient has no obvious bleeding noted and denies having pain or complaints with the exception of dizziness upon ambulation. Notified patient's surgeon, Dr. Sal and then Discussed with on-call surgeon, Dr. Johnson and we are transfusing 1 unit PCBCs. Vital signs reviewed, showing mild hypotensive and sinus tachycardia General: Nontoxic, no distress and appears stated age. Derm: Skin warm and dry, normal coloration for ethnicity. Head: Atraumatic, normocephalic and symmetric. Eyes: EOMs intact, no lid lag, and anicteric sclera Mouth: no lip lesions, mucus membranes moist Cardiovascular: Tachycardic rate and regular rhythm with normal S1S2, no murmur, positive posterior tibial pulses bilaterally, and cap refill < 2 seconds. Lungs: Respirations even, regular, and unlabored on room air. Lungs CTA bilaterally, no rhonchi, no rales, no wheezing, and no accessory muscle usage. Abdominal: soft, nontender to palpation, no guarding, no appreciable organomegaly. For laparoscopic incisions intact. No drainage or bleeding noted. Ext: ROM intact. No gross muscle atrophy, no edema, no contractures Neuro: Speech clear, face symmetrical and CN II-XII grossly intact with no noted focal neuro deficits Psych: Alert and oriented to person, place, time, and situation. Appropriate and pleasant affect. Assessment and Plan of Care: Acute postoperative blood loss, greater than expected Hypotension and tachycardia, likely secondary to above Dizziness upon standing -Preoperative hemoglobin 14.1, immediate postoperative hemoglobin 8.0 with repeat Hgb at 1 AM resulting at 7.2. There is no active bleeding noted and patient denying any complaints but blood pressure is low at 91/60 and heart rate is tachycardic at 105. -Repeat stat morning CBC resulting at 7.0. Order placed for stat type and screen, iron profile and transfusion of 1 unit of PRBCs -Patient placed on telemetry monitoring, fall precautions placed, and orthostatic vitals. Status post laparoscopic Khris fundoplication secondary to Hiatal hernia -Management per primary general surgery team including DVT prophylaxis, pain management, wound/dressing management, and advancement of diet. -Patient currently on DVT prophylaxis with Lovenox 40 mg daily. Type II bsh-ehashsp-rtexuyrte diabetes mellitus with hyperglycemia -Blood glucose 283 -Continue glycemic protocol with NovoLog sliding scale. -Patient may resume glipizide 10 mg daily and Actos 30 mg daily upon discharge. GERD -GI prophylaxis with Protonix 40 mg IVP daily. Data reviewed: Blood pressure 91/60, heart rate 105, respiratory rate 18, temp 99.0 F, and SpO2 of 94% on room air. Preoperative labs show hemoglobin 14.1. Immediate postoperative labs show hemoglobin of 8.0 and trended throughout the night decreasing to 7.0 this morning. Order placed for transfusion of 1 unit PRBCs. Thank you for allowing us to participate in the care of this pleasant patient. Do not hesitate to contact us with questions. Someone can be reached from the [facility] hospitalist group all hours of the day at [phone] or via [employer]. Patient was seen independently by Nurse Practitioner. This document was prepared using [employer] dictation software. Please allow for errors in logging engineer while rare they do occur. Salas Shannon NP rendered care for this patient independently, reviewed the findings and plan as documented in the note above. I did not physically speak with or examine the patient on this date. Objective - Vital Signs Vital signs: Vital Signs Temp 99 F 05/04/23 04:00 Pulse 105 H 05/04/23 04:00 Resp 18 05/04/23 04:00 BP 91/60 05/04/23 04:00 Pulse Ox 94 L 05/04/23 04:00 FiO2 Intake & Output 05/03/23 05/04/23 05/04/23 18:59 06:59 18:59 Intake Total 3900 0 Output Total 20 Balance 3880 0 Weight 66 kg Intake: IV 3900 Oral 0 Output: Estimated Blood Loss 20 Other: Voiding Method Toilet Toilet # Voids 1 1 - Labs CBC & Chem 7: 05/04/23 07:56 05/04/23 07:56 Labs: Abnormal Lab Results - Last 24 Hours (Table) 05/03/23 05/03/23 05/03/23 Range/Units 09:14 11:52 14:49 WBC (3.8-10.6) k/uL RBC (3.80-5.40) m/uL Hgb (11.4-16.0) gm/dL Hct (34.0-46.0) % Neutrophils # (1.3-7.7) k/uL Sodium (137-145) mmol/L Carbon Dioxide (22-30) mmol/L BUN (7-17) mg/dL Glucose (74-99) mg/dL POC Glucose (mg/dL) 162 H 169 H 229 H (70-110) mg/dL Calcium (8.4-10.2) mg/dL Total Protein (6.3-8.2) g/dL Albumin (3.5-5.0) g/dL 05/03/23 05/03/23 05/03/23 Range/Units 17:00 18:03 18:15 WBC 14.7 H 14.0 H (3.8-10.6) k/uL RBC 2.64 L 2.62 L (3.80-5.40) m/uL Hgb 8.0 L D 8.0 L (11.4-16.0) gm/dL Hct 23.5 L 23.8 L (34.0-46.0) % Neutrophils # 12.3 H (1.3-7.7) k/uL Sodium (137-145) mmol/L Carbon Dioxide (22-30) mmol/L BUN (7-17) mg/dL Glucose (74-99) mg/dL POC Glucose (mg/dL) 283 H (70-110) mg/dL Calcium (8.4-10.2) mg/dL Total Protein (6.3-8.2) g/dL Albumin (3.5-5.0) g/dL 05/03/23 05/03/23 05/04/23 Range/Units 18:15 20:00 01:08 WBC 11.3 H (3.8-10.6) k/uL RBC 2.38 L (3.80-5.40) m/uL Hgb 7.2 L (11.4-16.0) gm/dL Hct 21.1 L (34.0-46.0) % Neutrophils # (1.3-7.7) k/uL Sodium 133 L (137-145) mmol/L Carbon Dioxide 20 L (22-30) mmol/L BUN 19 H (7-17) mg/dL Glucose 253 H (74-99) mg/dL POC Glucose (mg/dL) 255 H (70-110) mg/dL Calcium 8.1 L (8.4-10.2) mg/dL Total Protein 4.9 L (6.3-8.2) g/dL Albumin 3.1 L (3.5-5.0) g/dL 05/04/23 Range/Units 05:08 WBC (3.8-10.6) k/uL RBC (3.80-5.40) m/uL Hgb (11.4-16.0) gm/dL Hct (34.0-46.0) % Neutrophils # (1.3-7.7) k/uL Sodium (137-145) mmol/L Carbon Dioxide (22-30) mmol/L BUN (7-17) mg/dL Glucose (74-99) mg/dL POC Glucose (mg/dL) 181 H (70-110) mg/dL Calcium (8.4-10.2) mg/dL Total Protein (6.3-8.2) g/dL Albumin (3.5-5.0) g/dL
[2023-05-04 11:45] LABS: Glucose,Whole Blood 215 mg/dL (70-110)
[2023-05-04 13:19] VITALS: BMI 29.3
[2023-05-04 16:32] LABS: Glucose,Whole Blood 181 mg/dL (70-110)
[2023-05-04 18:18] LABS: HCT 21.9 % (34.0-46.0); HGB 7.3 gm/dL (11.4-16.0); MCH 29.3 pg (25.0-35.0); MCHC 33.4 g/dL (31.0-37.0); MCV 87.6 fL (80.0-100.0); Mean Platelet Volume 10.1; Platelet Count 127 k/uL (150-450); RDW 13.7 % (11.5-15.5); WBC 9.4 k/uL (3.8-10.6)
[2023-05-04 20:34] LABS: Glucose,Whole Blood 150 mg/dL (70-110)
--- NOTE | 2023-05-04 21:55 | P.PN ---
Subjective Progress Note Date: 05/04/23 Principal diagnosis: Patient feeling well, somewhat tired. Denies significant abdominal pain, nausea, vomiting, fevers, chills, shortness of breath or chest pain Objective - Vital Signs Vital signs: Vital Signs Temp 99.3 F 05/04/23 20:00 Pulse 110 H 05/04/23 20:00 Resp 18 05/04/23 20:00 BP 127/68 05/04/23 20:00 Pulse Ox 92 L 05/04/23 20:00 FiO2 Intake & Output 05/04/23 05/04/23 05/05/23 06:59 18:59 07:59 Intake Total 0 283 Balance 0 283 Weight 66 kg Intake: Oral 0 Blood Product 283 Rc Pheresis 2 As3 Unit 283 [id number] Other: Voiding Method Toilet Toilet Toilet # Voids 1 1 gen: nad cv: rrr pul: non labored breathing abd: soft, non tender to palpation, no guarding or rebound tenderness, surgical incisions c/d/i - Labs CBC & Chem 7: 05/04/23 18:03 05/04/23 07:56 Labs: Abnormal Lab Results - Last 24 Hours (Table) 05/04/23 05/04/23 05/04/23 Range/Units 01:08 05:08 07:56 WBC 11.3 H (3.8-10.6) k/uL RBC 2.38 L (3.80-5.40) m/uL Hgb 7.2 L (11.4-16.0) gm/dL Hct 21.1 L (34.0-46.0) % Plt Count (150-450) k/uL Sodium (137-145) mmol/L BUN (7-17) mg/dL Glucose (74-99) mg/dL POC Glucose (mg/dL) 181 H (70-110) mg/dL Hemoglobin A1c 7.4 H (<=6.0) % Magnesium (1.6-2.3) mg/dL Total Protein (6.3-8.2) g/dL Albumin (3.5-5.0) g/dL Crossmatch 05/04/23 05/04/23 05/04/23 Range/Units 07:56 07:56 07:56 WBC 11.3 H (3.8-10.6) k/uL RBC 2.34 L (3.80-5.40) m/uL Hgb 7.0 L (11.4-16.0) gm/dL Hct 20.5 L (34.0-46.0) % Plt Count (150-450) k/uL Sodium 134 L (137-145) mmol/L BUN 20 H (7-17) mg/dL Glucose 160 H (74-99) mg/dL POC Glucose (mg/dL) (70-110) mg/dL Hemoglobin A1c (<=6.0) % Magnesium 1.5 L (1.6-2.3) mg/dL Total Protein 5.1 L (6.3-8.2) g/dL Albumin 3.2 L (3.5-5.0) g/dL Crossmatch 05/04/23 05/04/23 05/04/23 Range/Units 07:56 11:43 16:30 WBC (3.8-10.6) k/uL RBC (3.80-5.40) m/uL Hgb (11.4-16.0) gm/dL Hct (34.0-46.0) % Plt Count (150-450) k/uL Sodium (137-145) mmol/L BUN (7-17) mg/dL Glucose (74-99) mg/dL POC Glucose (mg/dL) 215 H 181 H (70-110) mg/dL Hemoglobin A1c (<=6.0) % Magnesium (1.6-2.3) mg/dL Total Protein (6.3-8.2) g/dL Albumin (3.5-5.0) g/dL Crossmatch See Detail 05/04/23 05/04/23 Range/Units 18:03 20:33 WBC (3.8-10.6) k/uL RBC 2.50 L (3.80-5.40) m/uL Hgb 7.3 L (11.4-16.0) gm/dL Hct 21.9 L (34.0-46.0) % Plt Count 127 L (150-450) k/uL Sodium (137-145) mmol/L BUN (7-17) mg/dL Glucose (74-99) mg/dL POC Glucose (mg/dL) 150 H (70-110) mg/dL Hemoglobin A1c (<=6.0) % Magnesium (1.6-2.3) mg/dL Total Protein (6.3-8.2) g/dL Albumin (3.5-5.0) g/dL Crossmatch Assessment and Plan Assessment: 58 yo female s/p roscoe fundoplication significant hgb drop 14-->7 slightly hypotensive w/ associated tachycardia and lethargy given acute drop and symptoms, I will transfuse 1 unit of packed red blood cells and recheck this afternoon. Time with Patient: Greater than 30
[2023-05-05 00:55] LABS: Basophils % (A) 0 %; Eosinophils # (A) 0.2 k/uL (0-0.7); Eosinophils % (A) 2 %; HCT 23.3 % (34.0-46.0); HGB 8.1 gm/dL (11.4-16.0); Lymphocytes # (A) 1.2 k/uL (1.0-4.8); Lymphocytes % (A) 12 %; MCH 30.1 pg (25.0-35.0); MCHC 34.5 g/dL (31.0-37.0); MCV 87.1 fL (80.0-100.0); Mean Platelet Volume 9.6; Monocytes # (A) 0.7 k/uL (0-1.0); Monocytes % (A) 7 %; Neutrophils # (A) 7.7 k/uL (1.3-7.7); Neutrophils % (A) 78 %; Platelet Count 136 k/uL (150-450); RBC 2.68 m/uL (3.80-5.40); RDW 13.7 % (11.5-15.5); WBC 9.9 k/uL (3.8-10.6)
--- NOTE | 2023-05-05 04:37 | CT ---
EXAM: CT Abdomen and Pelvis With Intravenous Contrast CLINICAL HISTORY: ITS.REASON CT Reason: Hgb drop post op surgery TECHNIQUE: Axial computed tomography images of the abdomen and pelvis with intravenous contrast. CTDI is 17.7 mGy and DLP is 932.3 mGy-cm. This CT exam was performed using one or more of the following dose reduction techniques: automated exposure control, adjustment of the mA and/or kV according to patient size, and/or use of iterative reconstruction technique. COMPARISON: 03/23/2023 FINDINGS: Lung bases: Small bilateral pleural effusions with bibasilar consolidations. No mass. No consolidation. ABDOMEN: Liver: Unremarkable. No mass. Gallbladder and bile ducts: Status post cholecystectomy. No ductal dilation. Pancreas: Unremarkable. No mass. No ductal dilation. Spleen: Unremarkable. No splenomegaly. Adrenals: Unremarkable. No mass. Kidneys and ureters: Unremarkable. No solid mass. No hydronephrosis. Stomach and bowel: Mild sigmoid colonic diverticulosis. Interval fundoplication. No obstruction. No mucosal thickening. PELVIS: Appendix: No findings to suggest acute appendicitis. Bladder: Unremarkable. No mass. Reproductive: Status post hysterectomy. ABDOMEN and PELVIS: Intraperitoneal space: Unremarkable. No free air. Trace perihepatic and perisplenic ascites. Small pelvic hemorrhage. Lobulated intraperitoneal hematoma tracking deep to the left rectus abdominis musculature measuring approximately 6.3 x 2.0 x 7.3 cm in maximal axial dimension Bones/joints: No acute fracture. No dislocation. Soft tissues: Unremarkable. Vasculature: Unremarkable. No abdominal aortic aneurysm. Lymph nodes: Unremarkable. No enlarged lymph nodes. IMPRESSION: 1. Lobulated intraperitoneal hematoma tracking deep to the left rectus abdominis musculature measuring approximately 6.3 x 2.0 x 7.3 cm in maximal axial dimension. Small pelvic hemorrhage. 2. Interval fundoplication.
[2023-05-05 05:35] LABS: HCT 22.4 % (34.0-46.0); HGB 7.7 gm/dL (11.4-16.0); MCHC 34.4 g/dL (31.0-37.0); MCV 87.1 fL (80.0-100.0); Mean Platelet Volume 10.7; Platelet Count 131 k/uL (150-450); RBC 2.58 m/uL (3.80-5.40); RDW 13.9 % (11.5-15.5); WBC 9.1 k/uL (3.8-10.6)
[2023-05-05 05:53] LABS: ALT 21 U/L (4-34); AST 27 U/L (14-36); African American GFR (CKD) >90 (>60 ml/min/1.73 sqM); Albumin 3.1 g/dL (3.5-5.0); Alkaline Phosphatase 62 U/L (38-126); Anion Gap 7 mmol/L; Blood Urea Nitrogen 11 mg/dL (7-17); Calcium 8.2 mg/dL (8.4-10.2); Carbon Dioxide 24 mmol/L (22-30); Chloride 107 mmol/L (98-107); Glucose 164 mg/dL (74-99); Magnesium 1.9 mg/dL (1.6-2.3); Non-African American GFR(CKD) >90 (>60 ml/min/1.73 sqM); Potassium 3.7 mmol/L (3.5-5.1); Sodium 138 mmol/L (137-145); Total Bilirubin 0.8 mg/dL (0.2-1.3); Total Protein 5.2 g/dL (6.3-8.2)
[2023-05-05 06:05] LABS: Glucose,Whole Blood 177 mg/dL (70-110)
[2023-05-05 07:33] LABS: Glucose,Whole Blood 170 mg/dL (70-110)
[2023-05-05 08:55] LABS: % Iron Saturation 17.26 (12.00-45.00)
--- NOTE | 2023-05-05 11:17 | P.PN ---
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 Postoperatively the patient did have a drop in hemoglobin from 14.1 down to 8. On the evening of 05/[address] abdomen and pelvis which demonstrated lobulated intraperitoneal hematoma tracking into the left rectus abdominal musculature associated with small pelvic hemorrhage. Her hemoglobin had remained stable for 48 hours between 7-8. Patient seen and examined at bedside. She is feeling well, she denies any complaints. no nausea or vomiting. She has no dizziness laying flat. She does have some when active, but it is much less than 2 days ago. Vital signs reviewed General: Nontoxic, no distress, appears at stated age Cardiovascular: S1S2 reg, no murmur Lungs: CTA bilateral, no rhonchi, no rales, no accessory muscle use Abdominal: Soft, nontender to palpation, no guarding Ext: No gross muscle atrophy, no edema b/l lower extremities, no contractures Neuro: CN II-XI grossly intact, no focal neuro deficits Psych: Alert, oriented, appropriate affect Assessment/Plan: Rectus Muscle Hematoma Acute postoperative blood loss, greater than expected Status post laparoscopic Roscoe fundoplication secondary to Hiatal hernia Hypotension and tachycardia, resolved - s/p 2 unit pRBC, 1 additional unit order. - follow CBC - Awiat further general surgery recommendations - hold lovenox, SCDs Type II pgc-jrbarht-gojfjqehc diabetes mellitus with hyperglycemia - Follow BS -Sliding scale insulin -Hold glipizide 10 mg daily and Actos 30 mg daily GERD -Protonix 40 mg IVP daily. Imaging: CT abdomen and pelvis which demonstrated lobulated intraperitoneal hematoma tracking into the left rectus abdominal musculature associated with small pelvic hemorrhage Data Review: Labs reviewed from this morning include CBC and CMP which are remarkable for hemoglobin 7.7, platelets 131 DVT prophylaxis: Lovenox Thank you for allowing us to participate in the care of this pleasant patient. Do not hesitate to contact us with questions. Someone can be reached from the [facility] hospitalist group all hours of the day at [phone] or via [employer]. This dictation was prepared using dragon medical voice recognition software. Though every attempt is made to correct errors during dictation some may still exist. Objective - Vital Signs Vital signs: Vital Signs Temp 98.5 F 05/05/23 07:00 Pulse 90 05/05/23 07:30 Resp 18 05/05/23 07:30 BP 126/75 05/05/23 07:30 Pulse Ox 95 05/05/23 07:30 FiO2 Intake & Output 05/04/23 05/05/23 05/05/23 17:59 06:59 18:59 Intake Total 75 Balance 75 Weight Intake: IV 75 Lactated Ringers 1,000 ml 75 @ 75 mls/hr IV .[id number] [facility] Rx#:[id number] Blood Product Unit Rc Pheresis 2 As3 Unit [id number] Other: Voiding Method # Voids 0 - Labs CBC & Chem 7: 05/05/23 05:26 05/05/23 05:26 Labs: Abnormal Lab Results - Last 24 Hours (Table) 05/04/23 05/04/23 05/04/23 Range/Units 07:56 07:56 07:56 WBC 11.3 H (3.8-10.6) k/uL RBC 2.34 L (3.80-5.40) m/uL Hgb 7.0 L (11.4-16.0) gm/dL Hct 20.5 L (34.0-46.0) % Plt Count (150-450) k/uL Sodium (137-145) mmol/L BUN (7-17) mg/dL Glucose (74-99) mg/dL POC Glucose (mg/dL) (70-110) mg/dL Hemoglobin A1c 7.4 H (<=6.0) % Calcium (8.4-10.2) mg/dL Magnesium 1.5 L (1.6-2.3) mg/dL Total Protein (6.3-8.2) g/dL Albumin (3.5-5.0) g/dL Crossmatch 05/04/23 05/04/23 05/04/23 Range/Units 07:56 07:56 11:43 WBC (3.8-10.6) k/uL RBC (3.80-5.40) m/uL Hgb (11.4-16.0) gm/dL Hct (34.0-46.0) % Plt Count (150-450) k/uL Sodium 134 L (137-145) mmol/L BUN 20 H (7-17) mg/dL Glucose 160 H (74-99) mg/dL POC Glucose (mg/dL) 215 H (70-110) mg/dL Hemoglobin A1c (<=6.0) % Calcium (8.4-10.2) mg/dL Magnesium (1.6-2.3) mg/dL Total Protein 5.1 L (6.3-8.2) g/dL Albumin 3.2 L (3.5-5.0) g/dL Crossmatch See Detail 05/04/23 05/04/23 05/04/23 Range/Units 16:30 18:03 20:33 WBC (3.8-10.6) k/uL RBC 2.50 L (3.80-5.40) m/uL Hgb 7.3 L (11.4-16.0) gm/dL Hct 21.9 L (34.0-46.0) % Plt Count 127 L (150-450) k/uL Sodium (137-145) mmol/L BUN (7-17) mg/dL Glucose (74-99) mg/dL POC Glucose (mg/dL) 181 H 150 H (70-110) mg/dL Hemoglobin A1c (<=6.0) % Calcium (8.4-10.2) mg/dL Magnesium (1.6-2.3) mg/dL Total Protein (6.3-8.2) g/dL Albumin (3.5-5.0) g/dL Crossmatch 05/05/23 05/05/23 05/05/23 Range/Units 00:29 05:26 05:26 WBC (3.8-10.6) k/uL RBC 2.68 L 2.58 L (3.80-5.40) m/uL Hgb 8.1 L 7.7 L (11.4-16.0) gm/dL Hct 23.3 L 22.4 L (34.0-46.0) % Plt Count 136 L 131 L (150-450) k/uL Sodium (137-145) mmol/L BUN (7-17) mg/dL Glucose 164 H (74-99) mg/dL POC Glucose (mg/dL) (70-110) mg/dL Hemoglobin A1c (<=6.0) % Calcium 8.2 L (8.4-10.2) mg/dL Magnesium (1.6-2.3) mg/dL Total Protein 5.2 L (6.3-8.2) g/dL Albumin 3.1 L (3.5-5.0) g/dL Crossmatch 05/05/23 05/05/23 Range/Units 06:04 07:32 WBC (3.8-10.6) k/uL RBC (3.80-5.40) m/uL Hgb (11.4-16.0) gm/dL Hct (34.0-46.0) % Plt Count (150-450) k/uL Sodium (137-145) mmol/L BUN (7-17) mg/dL Glucose (74-99) mg/dL POC Glucose (mg/dL) 177 H 170 H (70-110) mg/dL Hemoglobin A1c (<=6.0) % Calcium (8.4-10.2) mg/dL Magnesium (1.6-2.3) mg/dL Total Protein (6.3-8.2) g/dL Albumin (3.5-5.0) g/dL Crossmatch
[2023-05-05 11:27] LABS: Glucose,Whole Blood 162 mg/dL (70-110)
[2023-05-05] MEDS ORDERED: Potassium Replacement Protocol 1 EACH MISC MISCELLANE PRN ×2 (11:27→13:05)
[2023-05-05] MEDS ORDERED: Magnesium Replacement Protocol 1 EACH MISC MISCELLANE PRN (11:50)
[2023-05-05] MEDS: POTASSIUM CHLORIDE 10 MEQ in WATER FOR INJECTION 1 100ML.BAG IVPB SCH (12:25)
--- NOTE | 2023-05-05 12:49 | P.CNPUL ---
History of Present Illness Consult date: 05/05/23 Requesting physician: Arie Sal Reason for consult: other (ICU management, abdominal bleeding) Chief complaint: Status post laparoscopic Khris fundoplication History of present illness: This is a 58-year-old female, known history of multiple medical problems including type 2 diabetes, hiatal hernia, chronic GERD, patient was admitted on 05/03/2023, she underwent elective laparoscopic Khris fundoplication by Dr. Sal this was mostly done because of her severe GERD symptoms, apparently was not responsive to medical therapy. Surgery was basically uneventful, patient was seen by medical service for medical follow-up postsurgery, and according to the note she had no evidence of any issues in the immediate postoperative visit. On 05/04/2023, patient was noted to have significant drop in her hemoglobin, baseline hemoglobin was 14 and went down to 7. CT of the abdomen and pelvis showed lobulated intraperitoneal hematoma tracking deep to the left rectus abdominis musculature measuring 6.3 x 2.0 x 7.3 cm in maximal dimension. And there was also small pelvic hemorrhage. Considering the findings and considering the concern about ongoing abdominal bleeding, patient was transferred to the ICU. I accepted the patient to be transferred last night, and since her surgery the patient received 1 unit of packed RBCs and she is receiving 1 unit at the time I was evaluating the patient hemoglobin this morning was 7.7 prior to giving her the second unit of packed RBCs upon my eval uation, patient was noted to be hemodynamically stable, did not seem to be in any distress, and she was experiencing some vague abdominal discomfort, and tenderness. Surgery is very well aware of the patient's status and very aware of the CT of the abdomen pelvis findings Review of Systems REVIEW OF SYSTEMS: CONSTITUTIONAL: Negative. EYES: Negative. ENT: Negative. CARDIAC: Negative. PULMONARY: As above. GI: As noted in HPI. GENITOURINARY: Negative. MUSCULOSKELETAL: Negative. SKIN: Negative. NEUROPSYCH: Negative. ENDOCRINE: Negative. HEMATOLOGIC: Negative. 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, RT SHOULDER SX, COLONOSCOPY Past Anesthesia/Blood Transfusion Reactions: Motion Sickness, Postoperative Nausea & Vomiting (PONV) Additional Past Anesthesia/Blood Transfusion Reaction / Comment(s): PONV with morphine Smoking Status: Never smoker - Past Family History Mother Family Medical History: Diabetes Mellitus, Hyperlipidemia Additional Family Medical History / Comment(s): osteoporosis in spine Father Family Medical History: Cancer Additional Family Medical History / Comment(s): 2009 cancer of esophagus, larynx & thyroid Medications and Allergies Home Medications Medication Instructions Recorded Confirmed Type Omeprazole 20 mg PO DAILY 09/03/18 05/03/23 History Loratadine [Claritin] 10 mg PO DAILY 04/03/23 05/03/23 History glipiZIDE [Glucotrol] 10 mg PO AC-BRKFST 04/03/23 05/03/23 History Pioglitazone [Actos] 30 mg PO DAILY 05/02/23 05/03/23 History Acetaminophen Tab [Tylenol] 650 mg PO Q6H #30 tab 05/03/23 Rx Docusate [Colace] 100 mg PO BID #20 capsule 05/03/23 Rx Ibuprofen [Motrin] 600 mg PO Q6HR PRN #40 tab 05/03/23 Rx oxyCODONE HCL [OxyIR] 5 mg PO Q6H PRN 3 Days #10 tab 05/03/23 Rx Allergies Allergy/AdvReac Type Severity Reaction Status Date / Time codeine Allergy Nausea & Verified 05/03/23 09:02 Vomiting levofloxacin [From Levaquin] Allergy Swelling Verified 05/03/23 09:02 hydromorphone HCl AdvReac Nausea Verified 05/03/23 09:02 [From Dilaudid] morphine AdvReac Nausea & Verified 05/03/23 09:02 Vomiting oral contrast Allergy Vomiting Uncoded 05/05/23 03:20 STEROIDS AdvReac VERY HIGH Uncoded 05/03/23 09:02 BLOOD SUGARS Physical Exam Vitals: Vital Signs Temp Pulse Pulse Resp BP BP Pulse Ox 05/05/23 12:00 88 23 132/76 93 L 05/05/23 11:23 98.7 F 95 20 135/81 93 L 05/05/23 11:00 84 18 123/79 93 L 05/05/23 10:00 93 18 125/72 91 L 05/05/23 09:31 98.4 F 05/05/23 09:30 101 H 26 H 119/73 93 L 05/05/23 09:20 96 15 119/73 93 L 05/05/23 09:11 98.3 F 05/05/23 09:10 98 31 H 139/83 94 L 05/05/23 09:00 98.6 F 103 H 20 130/81 95 05/05/23 08:00 95 29 H 128/76 94 L 05/05/23 07:30 90 18 126/75 95 05/05/23 07:15 95 19 125/77 95 05/05/23 07:00 98.5 F 106 H 18 127/78 95 05/05/23 06:45 96 19 120/77 94 L 05/05/23 06:40 99.1 F 95 18 127/78 95 05/05/23 06:30 99 F 98 27 H 127/76 90 L 05/05/23 06:15 98 16 90 L 05/05/23 06:01 99.1 F 131/82 05/05/23 03:46 99.2 F 103 H 18 116/68 92 L 05/05/23 03:00 114 H 18 05/05/23 00:00 98.6 F 114 H 18 125/56 90 L 05/04/23 20:00 99.3 F 110 H 18 127/68 92 L 05/04/23 15:33 98.5 F 97 17 128/70 92 L 05/04/23 12:44 98.5 F 93 17 104/63 92 L 05/04/23 12:24 98.9 F 105 H 18 108/61 93 L 05/04/23 12:15 98.4 F 94 16 108/59 92 L Intake and Output 05/04/23 05/05/23 05/05/23 21:59 06:59 14:59 Intake Total 1651 Output Total 1400 Balance 251 Intake: IV 525 Lactated Ringers 1,000 ml 525 @ 75 mls/hr IV .[id number] [facility] Rx#:[id number] Blood Product 1126 Rc Pheresis 2 As3 Unit 280 [id number] Rc Pheresis 2 As3 Unit [id number] Rc Pheresis 2 As3 Unit 286 [id number] Output: Urine 1400 Other: Voiding Method # Voids 0 General: Reveals a very pleasant 58-year-old female in no distress Head: Atraumatic, normocephalic Skin: No rashes. Eye: Pupils are equal, round and reactive to light, extra-ocular movements are intact; there is normal conjunctiva bilaterally. Ears, nose, mouth and throat: There are moist mucous membranes and no oral lesions. Neck: The neck is supple, there is no tenderness or JVD. Cardiovascular: There is a regular rate and rhythm. No murmur, rub or gallop is appreciated. Respiratory: Diminished breath sounds at the bases no crackles rhonchi or wheezes Gastrointestinal: Obese, slightly tender, no rebound, no guarding. Positive bowel sounds. Musculoskeletal: No deformities and no limitation range of motion Neurological: Alert and oriented x 3 no gross focal deficit Psychiatric: Normal mood affect and no mental status examination Results - Laboratory Findings CBC and BMP: 05/05/23 05:26 05/05/23 05:26 Abnormal lab findings: Abnormal Labs 05/03/23 05/03/23 05/03/23 09:14 11:52 14:49 WBC RBC Hgb Hct Plt Count Neutrophils # Sodium Carbon Dioxide BUN Glucose POC Glucose (mg/dL) 162 H 169 H 229 H Hemoglobin A1c Calcium Magnesium Total Protein Albumin Crossmatch 05/03/23 05/03/23 05/03/23 17:00 18:03 18:15 WBC 14.7 H 14.0 H RBC 2.64 L 2.62 L Hgb 8.0 L D 8.0 L Hct 23.5 L 23.8 L Plt Count Neutrophils # 12.3 H Sodium Carbon Dioxide BUN Glucose POC Glucose (mg/dL) 283 H Hemoglobin A1c Calcium Magnesium Total Protein Albumin Crossmatch 05/03/23 05/03/23 05/04/23 18:15 20:00 01:08 WBC 11.3 H RBC 2.38 L Hgb 7.2 L Hct 21.1 L Plt Count Neutrophils # Sodium 133 L Carbon Dioxide 20 L BUN 19 H Glucose 253 H POC Glucose (mg/dL) 255 H Hemoglobin A1c Calcium 8.1 L Magnesium Total Protein 4.9 L Albumin 3.1 L Crossmatch 05/04/23 05/04/23 05/04/23 05:08 07:56 07:56 WBC RBC Hgb Hct Plt Count Neutrophils # Sodium Carbon Dioxide BUN Glucose POC Glucose (mg/dL) 181 H Hemoglobin A1c 7.4 H Calcium Magnesium 1.5 L Total Protein Albumin Crossmatch 05/04/23 05/04/23 05/04/23 07:56 07:56 07:56 WBC 11.3 H RBC 2.34 L Hgb 7.0 L Hct 20.5 L Plt Count Neutrophils # Sodium 134 L Carbon Dioxide BUN 20 H Glucose 160 H POC Glucose (mg/dL) Hemoglobin A1c Calcium Magnesium Total Protein 5.1 L Albumin 3.2 L Crossmatch See Detail 05/04/23 05/04/23 05/04/23 11:43 16:30 18:03 WBC RBC 2.50 L Hgb 7.3 L Hct 21.9 L Plt Count 127 L Neutrophils # Sodium Carbon Dioxide BUN Glucose POC Glucose (mg/dL) 215 H 181 H Hemoglobin A1c Calcium Magnesium Total Protein Albumin Crossmatch 05/04/23 05/05/23 05/05/23 20:33 00:29 05:26 WBC RBC 2.68 L 2.58 L Hgb 8.1 L 7.7 L Hct 23.3 L 22.4 L Plt Count 136 L 131 L Neutrophils # Sodium Carbon Dioxide BUN Glucose POC Glucose (mg/dL) 150 H Hemoglobin A1c Calcium Magnesium Total Protein Albumin Crossmatch 05/05/23 05/05/23 05/05/23 05:26 06:04 07:32 WBC RBC Hgb Hct Plt Count Neutrophils # Sodium Carbon Dioxide BUN Glucose 164 H POC Glucose (mg/dL) 177 H 170 H Hemoglobin A1c Calcium 8.2 L Magnesium Total Protein 5.2 L Albumin 3.1 L Crossmatch 05/05/23 11:26 WBC RBC Hgb Hct Plt Count Neutrophils # Sodium Carbon Dioxide BUN Glucose POC Glucose (mg/dL) 162 H Hemoglobin A1c Calcium Magnesium Total Protein Albumin Crossmatch - Diagnostic Findings Additional studies: CT of the abdomen and pelvis was reviewed, report was also noted. Assessment and Plan Assessment: Impression: Status post Khris's fundoplication. With complications as noted below Acute postoperative blood loss anemia, and expected Acute rectus abdominis hematoma Benign essential hypertension Type II wxv-ecoenot-cgbcppohl diabetes History of GERD, unresponsive to medical therapy requiring Khris's fundoplication Recommendations: Continue to monitor in the ICU Continue supportive care measures Continue to monitor serial hemoglobin hematocrit every few hours Transfuse if necessary especially if hemoglobin below 7 Surgery is already aware of the situation and on standby. Continue GI DVT prophylaxis hold any heparin products in the meantime. Continue Protonix. Continue to monitor blood sugars and address accordingly with sliding scale coverage Will continue to follow Time with Patient: Greater than 30
[2023-05-05 13:09] LABS: HCT 29.9 % (34.0-46.0); HGB 10.5 gm/dL (11.4-16.0); MCH 30.5 pg (25.0-35.0); MCHC 34.9 g/dL (31.0-37.0); MCV 87.4 fL (80.0-100.0); Mean Platelet Volume 9.6; Platelet Count 132 k/uL (150-450); RBC 3.43 m/uL (3.80-5.40); RDW 13.8 % (11.5-15.5); WBC 8.9 k/uL (3.8-10.6)
--- NOTE | 2023-05-05 13:25 | P.PN ---
Subjective Progress Note Date: 05/05/23 Principal diagnosis: Post Khris 58-year-old female doing better today. She is in the ICU. She was transferred here last night. Patient with evidence of bleeding postsurgically. Likely related to right upper quadrant trocar site. Hemoglobin has come up well now after 3rd unit was given. Tachycardia improved. Abdominal pain controlled. She would like to start liquids. Objective - Vital Signs Vital signs: Vital Signs Temp 98.7 F 05/05/23 11:23 Pulse 88 05/05/23 12:00 Resp 23 05/05/23 12:00 BP 132/76 05/05/23 12:00 Pulse Ox 93 L 05/05/23 12:00 FiO2 Intake & Output 05/04/23 05/05/23 05/05/23 17:59 06:59 18:59 Intake Total 1651 Output Total 1400 Balance 251 Weight Intake: IV 525 Lactated Ringers 1,000 ml 525 @ 75 mls/hr IV .[id number] [facility] Rx#:[id number] Blood Product 1126 Rc Pheresis 2 As3 Unit 280 [id number] Rc Pheresis 2 As3 Unit [id number] Rc Pheresis 2 As3 Unit 286 [id number] Output: Urine 1400 Other: Voiding Method # Voids 0 - Exam Abdomen: Soft, mild distention, mild ecchymosis right upper quadrant trocar site, mild tenderness - Labs CBC & Chem 7: 05/05/23 12:39 05/05/23 05:26 Labs: Abnormal Lab Results - Last 24 Hours (Table) 05/04/23 05/04/23 05/04/23 Range/Units 07:56 07:56 16:30 RBC (3.80-5.40) m/uL Hgb (11.4-16.0) gm/dL Hct (34.0-46.0) % Plt Count (150-450) k/uL Glucose (74-99) mg/dL POC Glucose (mg/dL) 181 H (70-110) mg/dL Hemoglobin A1c 7.4 H (<=6.0) % Calcium (8.4-10.2) mg/dL Total Protein (6.3-8.2) g/dL Albumin (3.5-5.0) g/dL Crossmatch See Detail 0305/04/23 05/05/23 Range/Units 18:03 20:33 00:29 RBC 2.50 L 2.68 L (3.80-5.40) m/uL Hgb 7.3 L 8.1 L (11.4-16.0) gm/dL Hct 21.9 L 23.3 L (34.0-46.0) % Plt Count 127 L 136 L (150-450) k/uL Glucose (74-99) mg/dL POC Glucose (mg/dL) 150 H (70-110) mg/dL Hemoglobin A1c (<=6.0) % Calcium (8.4-10.2) mg/dL Total Protein (6.3-8.2) g/dL Albumin (3.5-5.0) g/dL Crossmatch 05/05/23 05/05/23 05/05/23 Range/Units 05:26 05:26 06:04 RBC 2.58 L (3.80-5.40) m/uL Hgb 7.7 L (11.4-16.0) gm/dL Hct 22.4 L (34.0-46.0) % Plt Count 131 L (150-450) k/uL Glucose 164 H (74-99) mg/dL POC Glucose (mg/dL) 177 H (70-110) mg/dL Hemoglobin A1c (<=6.0) % Calcium 8.2 L (8.4-10.2) mg/dL Total Protein 5.2 L (6.3-8.2) g/dL Albumin 3.1 L (3.5-5.0) g/dL Crossmatch 05/05/23 05/05/23 05/05/23 Range/Units 07:32 11:26 12:39 RBC 3.43 L (3.80-5.40) m/uL Hgb 10.5 L (11.4-16.0) gm/dL Hct 29.9 L (34.0-46.0) % Plt Count 132 L (150-450) k/uL Glucose (74-99) mg/dL POC Glucose (mg/dL) 170 H 162 H (70-110) mg/dL Hemoglobin A1c (<=6.0) % Calcium (8.4-10.2) mg/dL Total Protein (6.3-8.2) g/dL Albumin (3.5-5.0) g/dL Crossmatch Assessment and Plan (1) GERD (gastroesophageal reflux disease) Narrative/Plan: 58-year-old female underwent lap Khris. Patient developed postsurgical bleed. Continue to monitor hemoglobin. Continue ICU observation today. Begin Khris clear liquids. Current Visit: Yes Status: Acute Code(s): K21.9 - GASTRO-ESOPHAGEAL REFLUX DISEASE WITHOUT ESOPHAGITIS SNOMED Code(s): 273926377
[2023-05-05] MEDS: POTASSIUM CHLORIDE ER 20 MEQ TAB.ER PO SCH (14:54)
[2023-05-05] MEDS: MAGNESIUM SULFATE-D5W PMX 1 GM in DEXTROSE/WATER 1 100ML.BAG IVPB ONE (14:55)
[2023-05-05 16:45] LABS: Glucose,Whole Blood 175 mg/dL (70-110)
[2023-05-05 20:25] LABS: Glucose,Whole Blood 144 mg/dL (70-110)
[2023-05-05 20:41] VITALS: RESP 16
[2023-05-06 07:13] LABS: Glucose,Whole Blood 126 mg/dL (70-110)
[2023-05-06 11:03] LABS: HCT 31.9 % (37.2-46.3); HGB 10.7 g/dL (12.0-15.0); MCH 29.2 pg (27.0-32.0); MCHC 33.5 g/dL (32.0-37.0); MCV 86.9 FL (80.0-97.0); Mean Platelet Volume 11.4 FL (9.5-12.2); NRBC Per 100 WBC 0.02 X 10*3/uL (0.00-0.01); Platelet Count 152 X 10*3/uL (140-440); RBC 3.67 X 10*6/uL (4.10-5.20); RDW 14.2 % (11.5-14.5); WBC 10.27 X 10*3/uL (4.50-10.00)
[2023-05-06 11:58] LABS: Glucose,Whole Blood 134 mg/dL (70-110)
[2023-05-06 12:21] VITALS: BP 113/68; PULSE 72; TEMP 98.1
--- NOTE | 2023-05-06 13:01 | P.DS ---
Providers Date of admission: 05/03/23 08:21 Expected date of discharge: 05/06/23 Attending physician: Arie Sal Consults: 05/03/23 11:28 Consult Physician Routine Consulting Provider: Gena Brady Consult Reason/Comments: Medical management Do you want consulting provider notified?: Yes 05/05/23 05:09 Consult Physician Stat Consulting Provider: Wally Pérez Consult Reason/Comments: ICU management Do you want consulting provider notified?: Yes Primary care physician: Jeffery Bird Hospital Course: Discharge diagnosis 1. GERD and hiatal hernia status post laparoscopic Niesen fundoplication 2. Intraperitoneal hematoma secondary to postsurgical bleeding Hospital course This is a 58-year-old female with GERD and hiatal hernia she is status post laparoscopic Niesen fundoplication. Patient had a significant drop in her hemoglobin and had been mildly tachycardic. A CT scan abdomen pelvis had reported lobulated intraperitoneal hematoma tracking deep into the left rectus abdominis musculature. And a small pelvic hemorrhage. Patient did receive 3 units of blood. Patient was able to come out of the ICU. She is tolerating diet. Her pain is controlled. She has been up and ambulating. She is having flatus. Hemoglobin at discharge is 10.7. Patient does have ecchymosis along the right upper quadrant trocar site. Area is soft. Patient is stable for discharge. Please refer to chart for any further details. Physician [employer] note has been reviewed by physician. Signing provider agrees with the documented findings, assessment, and plan of care. Patient Condition at Discharge: Stable Plan - Discharge Summary Discharge Rx Participant: No New Discharge Prescriptions: New Docusate [Colace] 100 mg PO BID #20 capsule oxyCODONE HCL [OxyIR] 5 mg PO Q6H PRN 3 Days #10 tab PRN Reason: Pain Acetaminophen Tab [Tylenol] 650 mg PO Q6H #30 tab Continue Omeprazole 20 mg PO DAILY glipiZIDE [Glucotrol] 10 mg PO AC-BRKFST Loratadine [Claritin] 10 mg PO DAILY Pioglitazone [Actos] 30 mg PO DAILY Discharge Medication List Omeprazole 20 mg PO DAILY 09/03/18 [History] Loratadine [Claritin] 10 mg PO DAILY 04/03/23 [History] glipiZIDE [Glucotrol] 10 mg PO AC-BRKFST 04/03/23 [History] Pioglitazone [Actos] 30 mg PO DAILY 05/02/23 [History] Acetaminophen Tab [Tylenol] 650 mg PO Q6H #30 tab 05/03/23 [Rx] Docusate [Colace] 100 mg PO BID #20 capsule 05/03/23 [Rx] oxyCODONE HCL [OxyIR] 5 mg PO Q6H PRN 3 Days #10 tab 05/03/23 [Rx] Follow up Appointment(s)/Referral(s): Arie Sal MD [STAFF PHYSICIAN] - 1 Week Activity/Diet/Wound Care/Special Instructions: No driving while taking OxyIR No lifting over 10 pounds You may shower. No soaking or tub baths for 2 weeks Very light activity until you are reevaluated at your follow up appointment with your surgeon No straws or carbonated beverages Continue full liquid diet until seen by surgeon Do not take Motrin due to increased bleeding risk Discharge Disposition: HOME SELF-CARE
--- NOTE | 2023-05-06 13:07 | P.PN ---
Subjective Progress Note Date: 05/06/23 This is a 58-year-old female, known history of multiple medical problems including type 2 diabetes, hiatal hernia, chronic GERD, patient was admitted on 05/03/2023, she underwent elective laparoscopic Khris fundoplication by Dr. Sal this was mostly done because of her severe GERD symptoms, apparently was not responsive to medical therapy. Surgery was basically uneventful, patient was seen by medical service for medical follow-up postsurgery, and according to the note she had no evidence of any issues in the immediate postoperative visit. On 05/04/2023, patient was noted to have significant drop in her hemoglobin, baseline hemoglobin was 14 and went down to 7. CT of the abdomen and pelvis showed lobulated intraperitoneal hematoma tracking deep to the left rectus abdominis musculature measuring 6.3 x 2.0 x 7.3 cm in maximal dimension. And there was also small pelvic hemorrhage. Considering the findings and considering the concern about ongoing abdominal bleeding, patient was transferred to the ICU. I accepted the patient to be transferred last night, and since her surgery the patient received 1 unit of packed RBCs and she is receiving 1 unit at the time I was evaluating the patient hemoglobin this morning was 7.7 prior to giving her the second unit of packed RBCs upon my evaluation, patient was noted to be hemodynamically stable, did not seem to be in any distress, and she was experiencing some vague abdominal discomfort, and tenderness. Surgery is very well aware of the patient's status and very aware of the CT of the abdomen pelvis findings The patient is seen today May 06, 2023 in follow-up on the regular medical floor. She was transferred out of the ICU yesterday. She is feeling well. Denies any worsening abdominal discomfort. No shortness of breath, cough or congestion. Maintaining good O2 saturations in the 90s on room air. White count 10.2. Hemoglobin 10.7. Platelets 152. Glucose 126. She remains on lactated Ringer's at 75 MLS per hour. Objective - Vital Signs Vital signs: Vital Signs Temp 98.1 F 05/06/23 11:17 Pulse 72 05/06/23 11:17 Resp 16 05/06/23 11:17 BP 113/68 05/06/23 11:17 Pulse Ox 96 05/06/23 11:17 FiO2 Intake & Output 05/05/23 05/06/23 05/06/23 18:59 06:59 18:59 Intake Total 2476 1140 Output Total 1400 Balance 1076 1140 Intake: IV 900 Lactated Ringers 1,000 ml 900 @ 75 mls/hr IV .[id number] MARTINA Rx#:[id number] Intake, IV Titration 50 900 Amount Lactated Ringers 1,000 ml 900 @ 75 mls/hr IV .[id number] MARTINA Rx#:[id number] Potassium Chloride 10 meq 50 In Water For Injection 1 100ml.bag @ 100 mls/hr IVPB Q1H MARTINA Rx#: [id number] Oral 400 240 Blood Product 1126 Rc Pheresis 2 As3 Unit 280 [id number] Rc Pheresis 2 As3 Unit 286 [id number] Output: Urine 1400 Other: Voiding Method External Catheter External Catheter Toilet # Voids 1 3 - Exam GENERAL EXAM: Alert, pleasant 58-year-old female, on room air, comfortable in no apparent distress. HEAD: Normocephalic. EYES: Normal reaction of pupils, equal size. NOSE: Clear with pink turbinates. THROAT: No erythema or exudates. NECK: No masses, no JVD. CHEST: No chest wall deformity. LUNGS: Equal air entry with no crackles, wheeze, rhonchi or dullness. CVS: S1 and S2 normal with no audible murmur, regular rhythm. ABDOMEN: Areas of ecchymosis more so on the right. Surgical sites clean, dry, well-approximated, normal bowel sounds, no guarding or rigidity. SPINE: No scoliosis or deformity SKIN: No rashes CENTRAL NERVOUS SYSTEM: No focal deficits, tone is normal in all 4 extremities. EXTREMITIES: There is no peripheral edema. No clubbing, no cyanosis. Peripheral pulses are intact. - Labs CBC & Chem 7: 05/06/23 06:10 05/05/23 05:26 Labs: Abnormal Lab Results - Last 24 Hours (Table) 05/05/23 05/05/23 05/05/23 Range/Units 12:39 16:43 20:23 WBC (4.50-10.00) X 10*3/uL RBC 3.43 L (3.80-5.40) m/uL Hgb 10.5 L (11.4-16.0) gm/dL Hct 29.9 L (34.0-46.0) % Plt Count 132 L (150-450) k/uL NRBC/100 WBC Diff (0.00-0.01) X 10*3/uL POC Glucose (mg/dL) 175 H 144 H (70-110) mg/dL 05/06/23 05/06/23 05/06/23 Range/Units 06:10 07:12 11:54 WBC 10.27 H (4.50-10.00) X 10*3/uL RBC 3.67 L (3.80-5.40) m/uL Hgb 10.7 L (11.4-16.0) gm/dL Hct 31.9 L (34.0-46.0) % Plt Count (150-450) k/uL NRBC/100 WBC Diff 0.02 H (0.00-0.01) X 10*3/uL POC Glucose (mg/dL) 126 H 134 H (70-110) mg/dL Assessment and Plan Assessment: Status post Khris's fundoplication on May 03, 2023 Acute postoperative blood loss anemia, unexpected, required 3 units of packed red blood cells Acute rectus abdominis hematoma Benign essential hypertension Type II [id number] diabetes History of GERD, unresponsive to medical therapy requiring Khris's fundoplication Plan: The patient was seen and evaluated Labs and medications reviewed Stable and on room air Cleared for discharge once cleared by surgical services I have personally seen and examined the patient, performed the documentation and the assessment and plan as written. Number of minutes spent on the visit: 10.
== END 2023-05-06 13:43 | disposition home or self-care (01) | DRG 327 ==
LOC: 2ORMAIN 08:21 → 4SSUR 15:27 → 3SCARD 16:16 → 2SICU 05-05 05:09 → 5NMEDONC 05-05 18:09
PROVIDERS: ADMIT Surgery; ATTEND Surgery
PROC: 0DV44ZZ Restriction of Esophagogastric Junction, Percutaneous Endoscopic Approach (ICD-10-PCS; principal; 2023-05-03 09:30)
PROC: 30233N1 Transfusion of Nonautologous Red Blood Cells into Peripheral Vein, Percutaneous Approach (ICD-10-PCS; 2023-05-04)
DX: K21.9 Gastro-esophageal reflux disease without esophagitis (principal); D62 Acute posthemorrhagic anemia; M96.841 Postprocedural hematoma of a musculoskeletal structure following other procedure; K44.9 Diaphragmatic hernia without obstruction or gangrene; E11.65 Type 2 diabetes mellitus with hyperglycemia; I10 Essential (primary) hypertension; Z79.84 Long term (current) use of oral hypoglycemic drugs; Z83.3 Family history of diabetes mellitus; Z71.3 Dietary counseling and surveillance; Z88.1 Allergy status to other antibiotic agents; Z88.5 Allergy status to narcotic agent; Z88.8 Allergy status to other drugs, medicaments and biological substances; Y83.8 Other surgical procedures as the cause of abnormal reaction of the patient, or of later complication, without mention of misadventure at the time of the procedure; Y73.3 Surgical instruments, materials and gastroenterology and urology devices (including sutures) associated with adverse incidents
CPT/HCPCS: 74177; 80053; 83036; 83540; 83550; 83735; 85025; 85027; 85730; 86850; 86900; 86901; 86920

== ENCOUNTER → 2023-12-20 | Outpatient (CLI) | payer BC ==
--- NOTE | 2023-12-23 18:16 | MM ---
Reason for Exam: Screening (asymptomatic). Last mammogram was performed 1 year(s) and 7 month(s) ago. Patient History: Menarche at age 12. First Full-Term at age 23. Hysterectomy at age 37. Postmenopausal. Other cancer, age 43. Risk Values: Sonya 5 year model risk: 1.2%. NCI Lifetime model risk: 7.9%. Prior Study Comparison: 12/10/2012 Bilateral Screening Mammogram, [facility]. 07/12/2016 Bilateral Screening Mammogram, [facility]. 05/01/2022 Bilateral MG 3D screening mammo w/cad, [facility]. Tissue Density: There are scattered areas of fibroglandular density. Findings: Analyzed By CAD. There is no suspicious group of microcalcifications or new suspicious mass in either breast. Overall Assessment: Negative, BI-RAD 1 Management: Screening Mammogram of both breasts in 1 year. . Patient should continue monthly self-breast exams. A clinical breast exam by your physician is recommended on an annual basis. This exam should not preclude additional follow-up of suspicious palpable abnormalities. Note on Sonya scores and lifetime risk: 1. A Sonya score greater than 3% is considered moderate risk. If this is the case, consider specialist referral to assess eligibility for a risk reducing agent. 2. If overall lifetime risk for the development of breast cancer is 20% or higher, the patient may qualify for future screening with alternating mammogram and breast MRI. [facility], , 12/23/2023 6:13 PM. Electronically signed and approved by: Alfonso Kay M.D. Radiologist
== END | disposition home or self-care (01) ==
LOC: RADMAMWWP 14:52
PROVIDERS: ATTEND Internal Medicine
CPT/HCPCS: 77067

== ENCOUNTER → 2024-01-15 | Outpatient (CLI) | payer BC, OTHER ==
--- NOTE | 2024-01-15 08:49 | FL ---
EXAMINATION TYPE: FL barium swallow DATE OF EXAM: 01/15/2024 8:41 AM COMPARISON: CT same day. CLINICAL INDICATION:Female, 58 years old with history of R06.1 STRIDOR R13.14 DYSPHAGIA; PHH, TECHNIQUE: The procedure was explained and patient history elicited. All patient questions were ans wered prior to start of procedure. Multiple spot fluoroscopic images of the esophagus were obtained a fter the oral ingestion of liquid barium as the contrast agent. Fluoroscopic time:41 sec Fluoroscopic images:0 Radiographs taken: 123 DAP: Not reported [id number] FINDINGS: There is tertiary contractions with transient transverse mucosal folds present. Small hiatal hernia p resent. There is delayed emptying into the gastric lumen. Post surgical changes gastroesophageal junc tion. The esophagus demonstrates normal primary and secondary peristalsis. No evidence for focal stricture, ulceration, or abnormal outpouching. No gastroesophageal reflux disease was identified. IMPRESSION: 1. Esophageal dysmotility with evidence of small hiatal hernia. 2. Postsurgical morphology to the gastroesophageal junction with outpouching extending left laterall y. Evidence of 3. Evidence of reflux with feline esophagus without witnessing it during real-time imaging during ex am. [facility], , 01/15/2024 8:47 AM
--- NOTE | 2024-01-15 12:39 | CT ---
EXAMINATION TYPE: CT neck chest w con DATE OF EXAM: 01/15/2024 8:17 AM COMPARISON: None. CLINICAL INDICATION: Female, 58 years old with history of R06.1 STRIDOR R13.14 DYSPHAGIA, Recent Thyroidplasty, c/o dysphagia and stridor since TECHNIQUE: Standard enhanced CT of the neck and chest. Axial sections with coronal and sagittal refo rmats were obtained. Contrast used:100 mL of Isovue 370 with IV Contrast, (none if empty) Oral contrast used: (none if empty) CT DLP: 924.70 mGycm, Automated exposure control for dose reduction was used. FINDINGS: Brain: Visualized portions are grossly unremarkable. Orbits: Unremarkable Sinuses: Grossly unremarkable. Spaces of the neck: Clear and symmetric. There is increased density within the left vocal cord sugges ting calcification. No surgical clips are identified around the focal cords. The vocal cords are othe rwise relatively symmetric. Musculoskeletal: No acute osseous pathology. Lymph nodes: Multiple nonenlarged lymph nodes are seen along both anterior chains of the neck. Vascular structures: Visualized major arteries are patent without evidence of aneurysm. Thoracic Inlet/airway: Airway is patent. The lung apices are clear. Soft tissues/Thyroid: Thyroid and remainder of the soft tissues are unremarkable. Other: none. LUNGS/ PLEURA: Consolidation, pneumothorax or pleural effusion. AIRWAY: Patent and unremarkable. HEART: Size within normal limits. MEDIASTINUM: No gross evidence of adenopathy. Hiatal hernia VASCULATURE: No aortic aneurysm. MUSCULOSKELETAL: No acute osseous abnormalities SOFT TISSUES/LYMPH NODES: Unremarkable. LOWER NECK: No significant findings. UPPER ABDOMEN: Diffuse low-attenuation to the liver parenchyma. The gallbladder surgically absent. Po st surgical changes around the gastroesophageal junction with small hiatal hernia. IMPRESSION 1. Increased mineralization of the left vocal cord possibly postsurgical. No evidence for mass or ly mphadenopathy. 2. The thyroid gland is grossly unremarkable. 3. Hiatal hernia is identified postsurgical changes around the gastroesophageal junction. 4. Hepatic steatosis. [facility], , 01/15/2024 12:36 PM
== END | disposition home or self-care (01) ==
LOC: RADCTMAIN 07:35
PROVIDERS: ATTEND Otolaryngology
DX: K44.9 Diaphragmatic hernia without obstruction or gangrene (principal); R06.1 Stridor; K22.4 Dyskinesia of esophagus; R13.14 Dysphagia, pharyngoesophageal phase; K21.9 Gastro-esophageal reflux disease without esophagitis
CPT/HCPCS: 74220; 70491; 71260; Q9967

== ENCOUNTER 2024-05-14 06:42 | Day surgery (SDC) | payer BC, OTHER ==
[2024-05-14 07:15] VITALS: TEMP 97
[2024-05-14] MEDS: LIDOCAINE 1% (10MG/ML) FOR IV START INTRADERMA STA (07:20)
[2024-05-14] MEDS: LACTATED RINGERS 1,000 ML IV SCH (07:20)
[2024-05-14] MEDS: IV FLUID CONTINUATION 1,000 ML IV ONE (07:20)
[2024-05-14] MEDS ORDERED: PROPOFOL 10 MG/ML 20 ML VIAL IV ONE (07:27)
[2024-05-14 07:32] LABS: Glucose,Whole Blood 166 mg/dL (70-110)
--- NOTE | 2024-05-14 07:43 | P.PCN ---
Date of Procedure: 05/14/24 Preoperative Diagnosis: Esophageal stricture GERD Postoperative Diagnosis: Gastritis Procedure(s) Performed: EGD with biopsy Anesthesia: MAC Surgeon: Chely Richmond Pathology: other (Biopsy of duodenum, antrum, GE junction) Condition: stable Disposition: same day Indications for Procedure: 59-year-old female presents today for upper endoscopy. She has history of esophageal stricture and states that she does feel some difficulty with swallowing once again. Risks, benefits and alternatives were provided to the patient. All questions answered. Operative Findings: No evidence of esophageal stricture Mild gastritis Description of Procedure: The patient was brought into the endoscopy suite and placed in left lateral decubitus position. Adequate sedation was achieved using conscious sedation. A bite-block was placed and an endoscope was placed in the oropharynx and advanced under endoscopic visualization. The endoscope was advanced through the esophagus into the stomach, through the gastric antrum and in through the pylorus. The third portion of duodenum was visualized. The endoscope was then slowly withdrawn. The first portion of duodenum was noted to have mild inflammatory changes. Biopsies were taken. The antrum was noted to have mild inflammatory changes. Biopsies were taken. The gastric body distended normally and the gastric folds appeared normal and flattened with insufflation. A retroflexed view of the fundus and GE junction revealed mild hiatal hernia. GE junction appeared normal and biopsies were taken. The esophagus appeared endoscopically normal with no evidence of stricture. Excess air was removed and the scope was withdrawn and the procedure was completed. The patient was sent to PACU in stable condition.
[2024-05-14 08:02] VITALS: BP 113/68; PULSE 76; RESP 18
== END 2024-05-14 08:29 | disposition home or self-care (01) ==
LOC: ORWHC2ENDO 06:42
PROVIDERS: ATTEND Surgery
DX: K29.50 Unspecified chronic gastritis without bleeding (principal); K22.2 Esophageal obstruction; E11.9 Type 2 diabetes mellitus without complications; R74.8 Abnormal levels of other serum enzymes; K52.9 Noninfective gastroenteritis and colitis, unspecified; E78.5 Hyperlipidemia, unspecified; Z88.1 Allergy status to other antibiotic agents; Z88.5 Allergy status to narcotic agent; Z88.8 Allergy status to other drugs, medicaments and biological substances; Z79.84 Long term (current) use of oral hypoglycemic drugs
CPT/HCPCS: 88305; 43239; J2704

== ENCOUNTER → 2024-07-02 | Outpatient (CLI) | payer OTHER ==
--- NOTE | 2024-07-02 12:31 | XR ---
EXAMINATION TYPE: XR hand limited bilateral DATE OF EXAM: 07/02/2024 12:04 PM INDICATION: Patient age:Female; 59 years old; Reason for study: bilateral hand pain; PHH. pain COMPARISON: Right hand and wrist radiographs 03/21/2017 TECHNIQUE: Frontal, lateral and oblique views of both hands were obtained. FINDINGS: Joint space narrowing with marginal osteophytosis involving the PIP and DIP joints of the d igits. Most prominent within the third digit of the left hand. No acute osseous pathology is identifi ed. No evidence of soft tissue swelling. No radiopaque foreign body. No osseous erosions. IMPRESSION: 1. No acute osseous pathology. 2. Mild osteoarthritic changes of both hands. [facility], , 07/02/2024 12:28 PM
--- NOTE | 2024-07-02 12:35 | XR ---
EXAMINATION TYPE: XR foot complete bilateral DATE OF EXAM: 07/02/2024 12:04 PM INDICATION: Patient age:Female; 59 years old; Reason for study: bilateral foot pain; PHH. pain COMPARISON: None TECHNIQUE: Both feet were examined in the AP, oblique, and lateral projections. FINDINGS: No evidence of any acute osseous pathology. No evidence of soft tissue swelling. Joints are preserve d. No osseous erosions. Moderate-sized plantar calcaneal enthesophytes bilaterally. IMPRESSION: No evidence of acute fracture. [facility], , 07/02/2024 12:33 PM
== END | disposition home or self-care (01) ==
LOC: RADXRMAIN 11:46
PROVIDERS: ATTEND Internal Medicine
DX: R25.2 Cramp and spasm (principal); M19.041 Primary osteoarthritis, right hand; M79.671 Pain in right foot; M79.672 Pain in left foot

== ENCOUNTER → 2024-08-07 | Outpatient (CLI) | payer OTHER ==
--- NOTE | 2024-08-07 14:33 | MR ---
EXAMINATION TYPE: MR femur/thigh LT wo/w con DATE OF EXAM: 08/07/2024 9:45 AM COMPARISON: 03/31/2018 femur. 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 Contrast: 7ml mL Gadobutrol (none if empty) FINDINGS: Posttreatment changes to the lateral left leg. Patchy areas of bone marrow signal in this r egion which are lower T2 signal. Few areas within the cortex have increased signal including series 8 01 image 24. Postcontrast imaging subtraction was performed to evaluate for enhancement. No definitive abnormal postcontrast enhancement to suggest mass. No organizing fluid collections. Few scattered foci of stability compatible with surgical clips. IMPRESSION: 1. Nonspecific slightly heterogenous bone marrow signal within the distal left femur. Unclear phases posttreatment change. Consider follow-up plain films are compared to 04/10/2018. No subtraction imagi ng was performed to evaluate for enhancement. 2. Posttreatment changes of the left leg no enhancing masses definitively visualized. No lymphadenop athy. No evidence of fracture. [facility], , 08/07/2024 2:31 PM
== END | disposition home or self-care (01) ==
LOC: RADMRIMAIN 08:28
PROVIDERS: ATTEND Internal Medicine
DX: C49.22 Malignant neoplasm of connective and soft tissue of left lower limb, including hip (principal); Z98.890 Other specified postprocedural states
CPT/HCPCS: 73720; A9585